=== PATIENT | female | born 1940 | race Caucasian/White ===

== ENCOUNTER 2018-09-18 18:41 | Inpatient (IN) | payer OTHER ==
[2018-09-18] MEDS ORDERED: SKIN ADHESIVE (DERMABOND) 1 EACH TP ONE (20:23)
--- NOTE | 2018-09-18 20:25 | EDPHY ---
H & P Stated Complaint: Fall/lac on head Time Seen by Provider: 09/18/18 19:28 HPI/ROS: Chief complaint: Trip and fall with head injury History of present illness: This is a 77-year-old female who presents to the emergency department for evaluation after sustaining a trip and fall injuring her head. She reports she misstepped falling forward striking the right side of her head. She has sustained a laceration. She has mild headache. In addition the right front aspect of her chest is somewhat sore. There was no loss of consciousness. She denies trauma to or pain in other parts of the body including the neck, back, abdomen or extremities. No other neurologic symptoms such as paresthesias, weakness or paralysis or bowel or bladder dysfunction. Review of systems: A 10 point review of systems was obtained and other than described above was negative - Personal History Current Tetanus/Diphtheria Vaccine: Yes - Medical/Surgical History Hx Asthma: No Hx Chronic Respiratory Disease: No Hx Diabetes: No Hx Cardiac Disease: No Hx Renal Disease: No Hx Cirrhosis: No Hx Alcoholism: No Other PMH: HTN, L sided aneurism with coil - Social History Smoking Status: Former smoker - Physical Exam Exam: General Appearance: Alert, nontoxic, easily conversant with me. Eyes: PERRLA. EOM intact. Respiratory: Lungs clear to auscultation bilaterally. Cardiac: Regular rate and rhythm. Gastrointestinal: Bowel sounds normal. Abdomen soft, nondistended, nontender. Neurological: Alert and oriented x4. Cranial nerves 2-12 grossly intact. Strength and sensation intact and symmetrical. Skin: 1.5 cm laceration to the superolateral aspect of the right orbit. Musculoskeletal: Mild tenderness around the right orbit. The rest of the head is nontender without crepitus or bony deformity. The spine is nontender to palpation along its entire length. No crepitus, bony deformity or step-off is appreciated. Mild tenderness to the right, anterior and inferior chest wall without crepitus or subcutaneous air. The rest of the chest wall is intact palpation. Patient is moving all extremities without difficulty. Constitutional: Initial Vital Signs Temperature (C) 36.5 C 09/18/18 18:56 Heart Rate 74 09/18/18 18:56 Respiratory Rate 18 09/18/18 18:56 Blood Pressure 222/86 H 09/18/18 18:56 O2 Sat (%) 95 02/08/19 18:56 O2 Delivery Mode Room Air Allergies/Adverse Reactions: No Known Allergies Allergy (Unverified 09/18/18 18:59) Home Medications: Medication Instructions Recorded Herbals/Supplements -Info Only 1 ea PO DAILY 09/18/18 Hydrochlorothiazide [HCTZ (*)] 12.5 mg PO DAILY 09/18/18 Levothyroxine [Synthroid 50 mcg 50 mcg PO DAILY06 09/18/18 (*)] Losartan Potassium [Cozaar 50 mg 50 mg PO BID 09/18/18 (*)] amLODIPine BESYLATE [Norvasc 2.5 2.5 mg PO BID 09/18/18 mg (*)] Medical Decision Making - Diagnostics Imaging Results: Imaging Impressions Head CT 09/18/18 19:34 Impression: 1. Subarachnoid and subdural hematoma on the left frontoparietal junction, whereas the trauma is on the right side. 2. Right periorbital subcutaneous cutaneous air, with a fracture of the inferior orbital wall. 3. The inferior orbital muscle goes into the fracture. Does the patient clinically have entrapment? Findings and recommendations discussed with EVELIA Fajardo, at 8:20 p.., on September 18, 2018. Final report concurs with initial preliminary interpretation. Imaging: Discussed imaging studies w/ wafer production worker Radiologist Procedures: Procedure: Laceration repair. Verbal consent was obtained from the patient. The 1.5 cm laceration on the right side of the face was anesthetized in the usual fashion. The wound was irrigated, draped and explored to its base with a gloved finger. There were no deep structures involved. No tendon injury was identified. The wound was repaired with 5 0 Prolene, 1 running stitch. The wound repair was simple. The procedure was performed by myself. ED Course/Re-evaluation: Patient seen in conjunction with my secondary supervising physician Dr. Magdalena Ham. Patient presents to the emergency department after what appears to be a mechanical trip and fall. No preceding events such as dizziness or syncope noted. Imaging studies does reveal an intracranial bleed. She also has an orbital wall fracture and facial laceration. I have consulted with on-call Neurosurgery, Dr. Shah. He has reviewed the patient's CT scan. He would like patient admitted to the Trauma Services and he will follow along. I have consulted with Dr. Jeanette Alaniz who has seen this patient and will admit the patient for further evaluation and care. I have consulted with Dr. Bird Roberts of the hospitalist service for medical management. Dr. Alaniz has consulted with ENT for management of the orbital wall fracture. The plan has been discussed with the patient who voiced understanding and agreement with it. Differential Diagnosis: Included but not limited to soft tissue injury, bony fracture, intracranial injury, intrathoracic injury - Data Points Laboratory Results: Laboratory Results 09/18/18 20:35 09/18/18 20:35 09/18/18 09/18/18 09/18/18 20:35 20:35 20:35 WBC 11.48 10^3/uL H 10^3/uL (3.80-9.50) RBC 5.04 10^6/uL 10^6/uL (4.18-5.33) Hgb 14.6 g/dL g/dL (12.6-16.3) Hct 43.0 % % (38.0-47.0) MCV 85.3 fL fL (81.5-99.8) MCH 29.0 pg pg (27.9-34.1) MCHC 34.0 g/dL g/dL (32.4-36.7) RDW 12.9 % % (11.5-15.2) Plt Count 276 10^3/uL 10^3/uL (150-400) MPV 9.9 fL fL (8.7-11.7) Neut % (Auto) 80.7 % H % (39.3-74.2) Lymph % (Auto) 11.1 % L % (15.0-45.0) [place] % (Auto) 6.1 % % (4.5-13.0) Eos % (Auto) 1.1 % % (0.6-7.6) Baso % (Auto) 0.7 % % (0.3-1.7) Nucleat RBC Rel Count 0.0 % % (0.0-0.2) Absolute Neuts (auto) 9.25 10^3/uL H 10^3/uL (1.70-6.50) Absolute Lymphs (auto) 1.28 10^3/uL 10^3/uL (1.00-3.00) Absolute Monos (auto) 0.70 10^3/uL 10^3/uL (0.30-0.80) Absolute Eos (auto) 0.13 10^3/uL 10^3/uL (0.03-0.40) Absolute Basos (auto) 0.08 10^3/uL 10^3/uL (0.02-0.10) Absolute Nucleated RBC 0.00 10^3/uL 10^3/uL (0-0.01) Immature Gran % 0.3 % % (0.0-1.1) Immature Gran # 0.04 10^3/uL 10^3/uL (0.00-0.10) PT 13.8 SEC SEC (12.0-15.0) INR 1.04 (0.83-1.16) APTT 25.6 SEC SEC (23.0-38.0) Sodium 133 mEq/L L mEq/L (135-145) Potassium 3.6 mEq/L mEq/L (3.5-5.2) Chloride 98 mEq/L mEq/L (97-110) Carbon Dioxide 26 mEq/l mEq/l (22-31) Anion Gap 9 mEq/L mEq/L (6-14) BUN 24 mg/dL H mg/dL (7-23) Creatinine 0.7 mg/dL mg/dL (0.6-1.0) Estimated GFR > 60 Glucose 101 mg/dL H mg/dL (70-100) Calcium 9.9 mg/dL mg/dL (8.5-10.4) Medications Given: Discontinued Medications Hydromorphone HCl (Dilaudid) 0.5 mg IVP EDNOW ONE Stop: 09/18/18 21:01 Last Admin: 09/18/18 21:11 Dose: 0.5 mg Departure - Departure Disposition: [facility] Inpatient Acute Clinical Impression: Intracranial bleed Facial laceration Qualifiers: Encounter type: initial encounter Qualified Code(s): S01.81XA - Laceration without foreign body of other part of head, initial encounter Orbital wall fracture Qualifiers: Encounter type: initial encounter Fracture type: closed Qualified Code(s): S02.80XA - Fracture of other specified skull and facial bones, unspecified side , initial encounter for closed fracture Condition: Fair
[2018-09-18 20:48] LABS: PLATELET COUNT 276 10^3/uL (150-400)
[2018-09-18 20:59] LABS: INR 1.04 (0.83-1.16); PROTIME(PATIENT) 13.8 SEC (12.0-15.0)
[2018-09-18] MEDS ORDERED: HYDROmorphONE/DILAUDID 2 MG/ML INJ IVP ONE (21:00)
[2018-09-18] MEDS ORDERED: HYDROmorphONE/DILAUDID 1 MG/ML INJ ONE (21:09)
[2018-09-18] MEDS ORDERED: NALOXONE HCL 0.4 MG/ML INJ IVP PRN (21:25)
[2018-09-18] MEDS ORDERED: ONDANSETRON 4 MG/2 ML VIAL IVP PRN (21:25)
[2018-09-18] MEDS ORDERED: ONDANSETRON DISINTEGRATING 4 MG TAB PO PRN (21:25)
[2018-09-18] MEDS ORDERED: NS 1,000 ML IV SCH (21:45)
--- NOTE | 2018-09-18 22:14 | GHP ---
[f rep st] HISTORY AND PHYSICAL DATE OF ADMISSION: 09/18/2018 CHIEF COMPLAINT: Fall. HISTORY OF PRESENT ILLNESS: The patient is a 77-year-old woman who was visiting her cousin. She fel l and developed a lac on the lateral side of her orbit. She did not lose consciousness. She complai ns of headache. She has no diplopia. She has no confusion. PAST MEDICAL HISTORY: Hypertension, left-sided aneurysm with coil. SOCIAL HISTORY: Former smoker. ALLERGIES: No known drug allergies. FAMILY HISTORY: Noncontributory. REVIEW OF SYSTEMS: She has a headache. PHYSICAL EXAM: VITAL SIGNS: 36.5, 77, 203/93, 16, 97% room air. GENERAL: Pleasant, elderly woman sitting up on bed. Cousin at bedside. HEENT: Normocephalic. No gross hearing deficits. Mucous me mbranes moist. Pupils equal and round. No scleral icterus. She has a laceration on her right orbit that is sutured. There is faint ecchymosis around this area. No otorrhea. No rhinorrhea. Teeth f it together normally. No midface instability. NECK: No cervical spine tenderness. Full range of m otion. LUNGS: Clear to auscultation bilaterally. No increased work of breathing. CARDIAC: Regula r rate. ABDOMEN: Bowel sounds present, soft, nontender. MUSCULOSKELETAL: 5/5 strength upper and l ower extremities. NEURO: Grossly intact. SKIN: No other abrasions noted. Results reviewed. She had a CT scan performed of her head which showed subarachnoid and subdural hem atoma in the left frontoparietal junction, right periorbital subcutaneous air, and fracture of the in ferior orbital wall. IMPRESSION AND PLAN: The patient is a 77-year-old woman status post fall with fracture of right infe rior orbital wall and left subdural hematoma. She has history of coiling. Neurosurgery has been con sulted. Neuro checks. She is extremely hypertensive now. We will also consult the hospitalist. We will admit her overnight. /[id number]/MODL
[2018-09-18] MEDS: ACETAMINOPHEN 325 MG TAB PO PRN (23:28)
--- NOTE | 2018-09-19 06:40 | GCON ---
[f rep st] CONSULTATION DATE OF CONSULTATION: 09/18/2018 REQUESTING PHYSICIAN: Jeanette Alaniz MD CHIEF COMPLAINT: Elevated blood pressures. HISTORY OF PRESENT ILLNESS: The patient is a pleasant 77-year-old female visiting from [place], [place] , who sustained a fall with subsequent left eye laceration, orbital fracture, and subdural hematoma a nd subarachnoid hemorrhage. In the emergency room, she was noted to have quite elevated blood pressu res initially with a systolic of 222/86. Considering this, the hospital service was consulted for fu rther evaluation and management. Fortunately, with a little bit of time and pain control, her blood pressures did improve with her most recent reading of 122/63. No complaints of any chest pains or di fficulty breathing. PAST MEDICAL HISTORY: Hypertension, history of cerebral aneurysm, status post coiling. PAST SURGICAL HISTORY: Right patellar surgery, aneurysm coiling. CURRENT MEDICATIONS: Amlodipine 2.5 mg twice a day, hydrochlorothiazide 12.5 mg daily, losartan 50 m g twice a day, levothyroxine 50 mcg daily. ALLERGIES: No known drug allergies. FAMILY HISTORY: Father from lung cancer. Mother had a history of CABG and of complication s from hip surgery. SOCIAL HISTORY: The patient is currently . She resides in [place], [place]. She has 2 daughter s. She is a former tobacco smoker. REVIEW OF SYSTEMS: CONSTITUTIONAL: No complaints of any fevers or chills. ENT: No recent upper re spiratory illnesses. CARDIOVASCULAR: No complaints of any syncopal episodes or chest pains. RESPIR ATORY: No complaints of shortness of breath or productive cough. GI: No nausea, vomiting, diarrhea , or constipation. : No reports of any difficulty with urination. NEUROLOGIC: She does note rupal quent falls of recent, but no headaches at the current time after receiving pain medications. HEMATO LOGIC: No history of any deep vein thrombosis or pulmonary embolism. PSYCHIATRIC: No history of an xiety or depression. ENDOCRINE: No history of polyuria, or heat intolerance. SKIN: No new skin ra shes other than bruising around her right eye. MUSCULOSKELETAL: No focal joint pains. PHYSICAL EXAM: VITAL SIGNS: Temperature 36.5, blood pressure most recently 122/63, heart rate 73, r espirations 16, saturating 94% on room air. GENERAL: Patient appears comfortable. She is resting c omfortably in bed. She is awake, alert, conversant, in no acute distress. HEENT: Extraocular movem ents intact. No scleral icterus is noted. She does have bruising around the right eye and sutures i n place. NECK: Supple. No adenopathy appreciated. CHEST: Clear to auscultation with normal respi ratory effort. HEART: Regular rate and rhythm. No murmurs. ABDOMEN: Soft, nontender, nondistende d. : No Bocanegra catheter in place. EXTREMITIES: No significant pitting edema. NEUROLOGIC: Crani al nerves 2-12 appear intact. LABORATORY DATA: White blood cell count 11, hemoglobin 14, platelets 276. Sodium 133, potassium 3.6 , chloride 98, bicarb 26, BUN 24, creatinine 0.7, glucose of 101. INR 1.0, PTT 25. ASSESSMENT AND PLAN: 1. Hypertension. Patient's blood pressure has come down nicely with improved pain control. I recom mend that we continue with her current outpatient regimen without any changes for now. 2. Right eye laceration. This has been sutured. 3. Orbital wall fracture. ENT will be consulted by the ER. 4. Subdural hematoma and subarachnoid hemorrhage. Per trauma service. 5. Hypothyroidism. Continue current dosing of levothyroxine. 6. Deep venous thrombosis prophylaxis. Hold heparin or Lovenox overnight in light of subdural and s ubarachnoid hemorrhages. 7. Disposition. Per Trauma surgery. I appreciate the opportunity to help out in this patient's case. Will follow along during this hospi talization. /[id number]/MODL
[2018-09-19] MEDS: LOSARTAN POTASSIUM 50 MG TAB PO SCH ×2 (07:16→20:24)
[2018-09-19] MEDS: HYDROCHLOROTHIAZIDE 12.5 MG CAP PO SCH (07:17)
[2018-09-19] MEDS: LEVOTHYROXINE 50 MCG TAB PO SCH (07:17)
--- NOTE | 2018-09-19 08:30 | NEUSURGPN ---
Assessment/Plan: 77 yo female s/p fall without a LOC with SDH and tSAH - neuro stable - repeat head CT this am - no Keppra - PT/OT - if head stable then may discharged from neurosurgery standpoint Discussed with Dr. Kirby. Subjective: Having mild pain at the right shiela orbital region. No headache, nausea, vomiting. Objective: Awake. Alert. PERRL. EOMI Facial expression symmetrical Muscle strength full at 5/5 Sensation intact - Physician Discussed Patient with Dr.: Kirby Neurosurgery Physical Exam - Vitals, I&O, Labs I and O 09/18/18 09/19/18 09/20/18 05:59 05:59 05:59 Intake Total 250 Balance 250 Weight 64.866 kg Intake: Oral (ml) 250 Other: Intake Quantity Yes Sufficient Number of Voids Toilet 2 Vital Signs Temp Pulse Resp BP Pulse Ox 36.5 C 72 12 125/61 H 93 09/18/18 18:56 09/19/18 06:00 09/19/18 06:00 09/19/18 07:17 09/19/18 06:00 ICD10 Worksheet Patient Problems: Problems Problem Status Onset Facial laceration Acute Intracranial bleed Acute Orbital wall fracture Acute
[2018-09-19] MEDS: ACETAMINOPHEN 325 MG TAB PO PRN ×3 (09:01→20:24)
--- NOTE | 2018-09-19 09:47 | TRAUMAPNT ---
Trauma Tertiary Progress Note Assessment/Plan: no complaints. mild headache only. no visual changes. multiple falls over the past decade - she trips on the sidewalk frequently. she does have a neurologist in [place]. she notes mild right side chest wall pain with inspiration - this is not any different than last anjali. avss comfortable, up in chair scalp nontender. right periorbital ecchymosis minimal. normal ocular ROM. sutures clean. no other facial tenderness neck nontender heart reg lungs clear mild right lower chest wall tenderness abd nontender normal sensation BUE/BLE motor 5/5 BUE/BLE back nontender for repeat CT head today - assuming unremarkable, ok for dc to her cousin's house today she will return to [place] on friday and can have PCP remove suture toward end of week Objective: Vital Signs Temp Pulse Resp BP Pulse Ox 36.5 C 72 12 125/61 H 93 09/18/18 18:56 09/19/18 06:00 09/19/18 06:00 09/19/18 07:17 09/19/18 06:00 09/18/18 09/19/18 09/20/18 05:59 05:59 05:59 Intake Total 250 Balance 250 PT 13.8 SEC (12.0-15.0) 09/18/18 20:35 INR 1.04 (0.83-1.16) 09/18/18 20:35
--- NOTE | 2018-09-19 11:33 | GCON ---
[f rep st] CONSULTATION DATE OF CONSULTATION: 09/19/2018 HISTORY OF PRESENT ILLNESS: The patient is a 77-year-old female who presented to the emergency department following a fall. She states that she was walking outside and tripped on her own feet, falling forward and hitting the right side of her head. She denies loss of consciousness. She admits to localized pain at the right periorbital region. No nausea or vomiting. No neck or back pain. Denies upper and lower extremity pain, numbness, and tingling. She is visiting her cousin and is from [place]. PAST MEDICAL HISTORY: Hypertension, aneurysm coiling. PAST SURGICAL HISTORY: Knee surgery. ALLERGIES: No known drug allergies. HOME MEDICATIONS: Losartan, Norvasc, Synthroid, hydrochlorothiazide. SOCIAL HISTORY: Patient denies recreational drug use and current alcohol use and tobacco use. She lives in [place] with her . REVIEW OF SYSTEMS: Negative except for what is mentioned in the HPI. FAMILY HISTORY: No pertinent neurosurgical family history. PHYSICAL EXAM: GENERAL: Patient was seen and examined and appears to be in no apparent distress. Mood and affect are appropriate, alert and oriented. VITAL SIGNS: Blood pressure 125/61, heart rate is 72, respiration rate is 12, breathing 93% on room air. HEENT: Extraocular movements are intact. Pupils are equal and reactive. She has a laceration over her right eye with some periorbital edema. Facial expression is symmetrical. Tongue is midline with protrusion. Speech is fluent. Muscle strength is well preserved in her upper and lower extremities at a 5/5, and sensation is intact to light touch. RESULTS: White count 11.48, hemoglobin 14.6, hematocrit 43.0, platelet count 276. PT 13.8, INR 1.04, PTT 25.6. Sodium 133, potassium 3.6, chloride 98, bicarb 26, BUN 24, creatinine 0.7. CT of the head: Subarachnoid and subdural hematoma on the left frontoparietal junction, whereas the trauma is on the right side. Right periorbital subcutaneous cutaneous air with a fracture of the inferior orbital wall. Inferior orbital muscle goes into the fracture. ASSESSMENT AND PLAN: In summary, the patient is a 77-year-old female status post fall without a loss of consciousness. She is neurologically intact and has mild pain at the right periorbital region, where she has sustained a laceration. She had a CT head completed, demonstrating subarachnoid and subdural hematoma at the left frontoparietal junction. She denies taking any blood thinners or antiplatelets at home. She has been stable overnight. We will obtain a new head CT this morning. If head CT is stable and unchanged from her first scan, then she is stable from a neurosurgical standpoint to be discharged home. Prior to being discharged, we recommend evaluation by Physical and Occupational Therapy. Patient seen by myself and Dr. Kirby. /[id number]/MODL MTDD
--- NOTE | 2018-09-19 11:43 | GCON ---
[f rep st] CONSULTATION ENT CONSULTATION NOTE. DATE OF CONSULTATION: 09/19/2018 REQUESTING PHYSICIAN: Dr. Jeanette Alaniz. REASON FOR CONSULTATION: Right orbital floor fracture. HISTORY OF PRESENT ILLNESS: The patient is a 77-year-old woman who was visiting her cousin who lives up in [place], [place]. She herself actually lives outside of [place], [place]. She slipped and fell, striking her right orbital rim, causing a laceration on the right side of the orbit. She did not los e consciousness, but came to the hospital complaining of headache. She denies double vision. PAST MEDICAL HISTORY: Notable for a left-sided intracranial aneurysm treated with a coil. She also has hypertension. She is a former smoker. ALLERGIES: No known drug allergies. REVIEW OF SYSTEMS: The patient said she has a little bit of pain on the right side of her eye today. She denies any double vision. She is oriented to place, person, and time. IMAGING STUDIES: The patient had a CT scan performed of the head, which showed a subarachnoid and hollingsworth bdural hematoma in the left frontoparietal region and right periorbital subcutaneous air with the allison dence of fracture of the infraorbital wall. There was some bowing of the inferior rectus on 1 image into this defect. PHYSICAL EXAM: VITAL SIGNS: The patient's blood pressure is 125/61, heart rate of 72, respirations 12, O2 sat of 93% on room air. GENERAL: She is sitting upright, watching television. HEENT: Ear e xam is normal, with no signs of blood in the ear canal. Eardrums are normal, with no signs of middle ear fluid or hematoma. Eye exam: Pupils equal and reactive to light. Extraocular motions are inta ct, with no signs of entrapment. Nasal exam anteriorly is clear. There is no tenderness to palpatio n of the nasal dorsum. No evidence of nasal trauma or fracture. Oral cavity exam shows upper and lo wer dentures, which are in place. No signs of trauma to the palate or the mandible. No evidence of injury or missing fragments of the denture. Pharyngeal exam is normal. NECK: Exam is normal. No a denopathy, tenderness, or abnormal masses. Palpation of the area around the laceration of the right orbital rim shows no evidence of any step-of f. The laceration is sutured, with no evidence of infection. IMPRESSION: Right inferior orbital rim fracture with some herniation of periorbital fat and the infe rior rectus inferiorly. No sign of entrapment on physical exam. The patient lives in [place] and plan s to return on Friday. Typically in a situation like this, we would observe the patient for the week or so and see if they develops any evidence of delayed entrapment, in which case we would go to the operating room. I recommended that she call on Friday and make an appointment with an ear, no se, and throat surgeon who treats facial trauma down in [place], and she can see them near the end of or, at the latest, a week from this Friday. I have no other recommendations at this point in time. Thank you very much for this consultation. I would be happy to see her back if her condition changes . /[id number]/MODL
--- NOTE | 2018-09-19 12:01 | TRAUMAPN ---
Trauma Progress Note Assessment/Plan: CT head with increased SDH - reviewed with rads and NS - will plan to hold DC today and repeat in am especially given out of town status. patient understands rationale and in agreement. no complaints. mild headache only. no visual changes. multiple falls over the past decade - she trips on the sidewalk frequently. she does have a neurologist in [place]. she notes mild right side chest wall pain with inspiration - this is not any different than last anjali. avss comfortable, up in chair scalp nontender. right periorbital ecchymosis minimal. normal ocular ROM. sutures clean. no other facial tenderness neck nontender heart reg lungs clear mild right lower chest wall tenderness abd nontender normal sensation BUE/BLE motor 5/5 BUE/BLE back nontender for repeat CT head today - assuming unremarkable, ok for dc to her cousin's house today she will return to [place] on friday and can have PCP remove suture toward end of week Objective: Vital Signs Temp Pulse Resp BP Pulse Ox 36.7 C 68 12 129/57 H 96 09/19/18 08:00 09/19/18 10:00 09/19/18 10:00 09/19/18 10:00 09/19/18 10:00 09/18/18 09/19/18 09/20/18 05:59 05:59 05:59 Intake Total 250 Balance 250 PT 13.8 SEC (12.0-15.0) 09/18/18 20:35 INR 1.04 (0.83-1.16) 09/18/18 20:35
--- NOTE | 2018-09-19 13:58 | HOSPPROG ---
Hospitalist Progress Note Assessment/Plan: 77-year-old admitted with mechanical fall, sustaining a orbital fracture, subdural hematoma and subarachnoid hemorrhage. Overall she is improving although continues to complain of pain over her orbital fracture. Reviewed ENT no which recommends monitoring as no sign of entrapment at this time however she does need close and ongoing follow-up post discharge by ENT. # subdural hematoma and subarachnoid hemorrhage, followed by Neurosurgery. Will monitor [address] more [address] given recent CT scan results. # orbital fracture, appreciate ENT consult who recommends close monitoring for the next week to look for entrapment. At this time there is no evidence of entrapment. She will need to establish care back in [place] when she returns home. # hypertension on admission. I suspect this is likely due to pain and anxiety however that has resolved and she has been normotensive # hypothyroidism on replacement Subjective: Patient new to me and chart reviewed. Complains of pain over her right eye laceration and orbital fracture otherwise is doing pretty well. Objective: Vital Signs Temp Pulse Resp BP Pulse Ox 36.7 C 67 16 129/60 H 97 09/19/18 08:00 09/19/18 12:00 09/19/18 12:00 09/19/18 12:00 09/19/18 12:00 09/18/18 09/19/18 09/20/18 05:59 05:59 05:59 Intake Total 250 Balance 250 PT 13.8 SEC (12.0-15.0) 09/18/18 20:35 INR 1.04 (0.83-1.16) 09/18/18 20:35 - Physical Exam Constitutional: no apparent distress Eyes: PERRL Ears, Nose, Mouth, Throat: moist mucous membranes Cardiovascular: regular rate and rhythym Respiratory: no respiratory distress, clear to auscultation Gastrointestinal: soft, non-tender abdomen Genitourinary: no bladder fullness Skin: warm, No other (right ey) Musculoskeletal: full muscle strength Neurologic: AAOx3 Psychiatric: interacting appropriately ICD10 Worksheet Patient Problems: Problems Problem Status Onset Intracranial bleed Acute Facial laceration Acute Orbital wall fracture Acute
--- NOTE | 2018-09-19 14:04 | ASMTCMCOM ---
CM Note CM Note Notes: 09/19/2018 Case Management Note Discussed pt during rounds this morning. Pt is visiting [place] to see her cousin Dianne Roberts [phone]. Pt lives independently in her own home with her Wicho [phone] in [place]. Her daughter lives within a mile of her home. PCP is Dr. Luis Eduardo Juarez in [place]. Pt plans to fly back to [place] on Friday. PT is recommending home. Case Management d/c poc: home with follow up as directed. Case Management available if needs change. Date Signed: 09/19/2018 02:03 PM Electronically Signed By:Anna Leslie RN
--- NOTE | 2018-09-19 15:37 | PDMN ---
Medical Necessity Medical necessity: [facility] M78 Traumatic Brain Injury, Nonsurgical Treatment: 77 yo w/ mechanical fall sustatine orbital fx, subdural hematoma and subarachnoid hemorrhage. Trauma following, initially OBS overnight but repeat CT this am shows increased subdural hematoma. Pt requires additional monitoring overnight w/ repeat CT in am. Change to IP status 09/19/18@1516 per order
[2018-09-20] MEDS: ACETAMINOPHEN 325 MG TAB PO PRN ×2 (04:17→08:11)
[2018-09-20] MEDS: LEVOTHYROXINE 50 MCG TAB PO SCH (04:17)
[2018-09-20] MEDS: HYDROCHLOROTHIAZIDE 12.5 MG CAP PO SCH (08:11)
[2018-09-20] MEDS: LOSARTAN POTASSIUM 50 MG TAB PO SCH ×2 (08:11→20:22)
--- NOTE | 2018-09-20 08:34 | NEUSURGPN ---
Assessment/Plan: 77 yo female s/p fall without a LOC with SDH and tSAH - neuro stable - repeat head CT this am stable - no Keppra - PT/OT - ok to be discharged from neurosurgery standpoint and ok to fly back to [place] on Friday Discussed with Dr. Kirby. Subjective: No headache, nausea, vomiting. Objective: Awake. Alert. PERRL Muscle strength full at 5/5 Sensation intact Right periorbital edema/ecchymosis - Physician Discussed Patient with Dr.: Kirby Neurosurgery Physical Exam - Vitals, I&O, Labs I and O 09/19/18 09/20/18 09/21/18 05:59 05:59 05:59 Intake Total 2650 Balance 2650 Intake: Oral (ml) 2650 Other: Intake Quantity Yes Sufficient Number of Voids Toilet 1 Vital Signs Temp Pulse Resp BP Pulse Ox 36.6 C 74 16 124/57 H 95 09/20/18 08:05 09/20/18 08:05 09/20/18 08:05 09/20/18 08:11 09/20/18 08:05 ICD10 Worksheet Patient Problems: Problems Problem Status Onset Facial laceration Acute Intracranial bleed Acute Orbital wall fracture Acute
--- NOTE | 2018-09-20 09:32 | PDDCSUM ---
Discharge Summary Discharge Summary: DC summary
[2018-09-20] MEDS ORDERED: levETIRAcetam 1000MG/NACL 100 ML IV ONE (10:05)
[2018-09-20] MEDS ORDERED: METOPROLOL TARTRATE 5 MG/5 ML INJ IVP PRN (10:09)
--- NOTE | 2018-09-20 10:16 | TRAUMAPN ---
Trauma Progress Note Assessment/Plan: patient was doing well with plans for discharge today. repeat head CT unchanged from yesterday. upon attempting a BM, patient called for help in the bathroom and was found seizing (tonic/clonic activity witnessed with later BM). she was helped back to bed and became postictal without added meds. keppra ordered. labs/ekg requested. will hold discharge. care plan reviewed with NS. Objective: Vital Signs Temp Pulse Resp BP Pulse Ox 36.6 C 74 16 124/57 H 95 09/20/18 08:05 09/20/18 08:05 09/20/18 08:05 09/20/18 08:11 09/20/18 08:05 09/19/18 09/20/18 09/21/18 05:59 05:59 05:59 Intake Total 2650 Balance 2650 PT 13.8 SEC (12.0-15.0) 09/18/18 20:35 INR 1.04 (0.83-1.16) 09/18/18 20:35
[2018-09-20] MEDS ORDERED: levETIRAcetam 500MG/NACL 100 ML IV SCH (10:30)
--- NOTE | 2018-09-20 10:52 | HOSPPROG ---
Hospitalist Progress Note Assessment/Plan: 77-year-old admitted with mechanical fall, sustaining a orbital fracture, subdural hematoma and subarachnoid hemorrhage. Overall she is improving although continues to complain of pain over her orbital fracture. Reviewed ENT no which recommends monitoring as no sign of entrapment at this time however she does need close and ongoing follow-up post discharge by ENT. This morning she had a grand mal seizure while in the bathroom # subdural hematoma and subarachnoid hemorrhage, followed by Neurosurgery. CT scan results today are stable # grand mal seizure. Patient and bathroom and noted her right hand was shaking uncontrollably before her seizure. She was able to call out and get help so she was not injured. EKG post seizure did show some significant ST depressions on the limb leads. Cardiology has been consulted. * Follow-up on troponins * Echocardiogram * Stress test depending on echocardiogram results either inpatient or outpatient or angiogram # orbital fracture, appreciate ENT consult who recommends close monitoring for the next week to look for entrapment. At this time there is no evidence of entrapment. She will need to establish care back in [place] when she returns home. # hypertension on admission. I suspect this is likely due to pain and anxiety however that has resolved and she has been normotensive # hypothyroidism on replacement Subjective: Patient had a grand mal seizure this morning. Discussed in multidisciplinary rounds also discussed with trauma. Denies any chest pain or shortness of breath does recall her right arm shaking just prior to her seizure. She has never had seizures before. Objective: Vital Signs Temp Pulse Resp BP Pulse Ox 36.6 C 91 19 131/70 H 94 09/20/18 08:05 09/20/18 10:34 09/20/18 10:34 09/20/18 10:34 09/20/18 10:34 Laboratory Results 09/20/18 10:15 09/19/18 09/20/18 09/21/18 05:59 05:59 05:59 Intake Total 2650 Balance 2650 PT 13.8 SEC (12.0-15.0) 09/18/18 20:35 INR 1.04 (0.83-1.16) 09/18/18 20:35 ICD10 Worksheet Patient Problems: Problems Problem Status Onset Intracranial bleed Acute Facial laceration Acute Orbital wall fracture Acute
--- NOTE | 2018-09-20 11:42 | PDCARCONS ---
Cardiology Consult Reason for Consult: Abnormal EKG post seizure Chief Complaint: Seizure Requesting Physician: Dr. Yesi Cespedes History of Present Illness: 77-year-old female visiting here from [place]. On Friday evening, while walking into [place] [employer], she tripped and fell, had intracranial bleed. Has been admitted to a trauma service. This morning she had a seizure. EKG was done post seizure that showed inferolateral ST depressions. Therefore we were asked to see the patient. At time of my visit with the patient she is fully awake and alert, denies any chest discomfort. She has not had exertional chest discomfort in the past. No history of syncope, she sure that her episode on Friday evening was a mechanical fall. History Information - Allergies/Home Medication List Allergies/Adverse Reactions: No Known Allergies Allergy (Unverified 09/18/18 18:59) Home Medications: Herbals/Supplements -Info Only 1 ea PO DAILY 09/18/18 [Last Taken Unknown] Hydrochlorothiazide [HCTZ (*)] 12.5 mg PO DAILY 09/18/18 [Last Taken 09/18/18 08 :00] Levothyroxine [Synthroid 50 mcg (*)] 50 mcg PO DAILY06 09/18/18 [Last Taken 03/29 08:00] Losartan Potassium [Cozaar 50 mg (*)] 50 mg PO BID 09/18/18 [Last Taken 08:00] amLODIPine BESYLATE [Norvasc 2.5 mg (*)] 2.5 mg PO BID 09/18/18 [Last Taken 03/29 08:00] Past Medical History: - Social History Smoking Status: Former smoker Physical Exam Physical Exam: Temp Pulse Resp BP Pulse Ox 36.6 C 91 19 131/70 H 94 09/20/18 08:05 09/20/18 10:34 09/20/18 10:34 09/20/18 10:34 09/20/18 10:34 Constitutional: no apparent distress, appears nourished Eyes: PERRL, EOMI Ears, Nose, Mouth, Throat: moist mucous membranes, hearing normal Cardiovascular: regular rate and rhythym, no murmur, rub, or gallop Respiratory: no respiratory distress Gastrointestinal: normoactive bowel sounds, soft, non-tender abdomen Skin: warm Neurologic: AAOx3 Psychiatric: interacting appropriately, not anxious, not encephalopathic, thought process linear Lab and Imaging 09/18/18 20:35 09/20/18 10:15 WBC 11.48 10^3/uL (3.80-9.50) H 09/18/18 20:35 RBC 5.04 10^6/uL (4.18-5.33) 09/18/18 20:35 Hgb 14.6 g/dL (12.6-16.3) 09/18/18 20:35 Hct 43.0 % (38.0-47.0) 09/18/18 20:35 MCV 85.3 fL (81.5-99.8) 09/18/18 20:35 MCH 29.0 pg (27.9-34.1) 09/18/18 20:35 MCHC 34.0 g/dL (32.4-36.7) 09/18/18 20:35 RDW 12.9 % (11.5-15.2) 09/18/18 20:35 Plt Count 276 10^3/uL (150-400) 09/18/18 20:35 MPV 9.9 fL (8.7-11.7) 09/18/18 20:35 Neut % (Auto) 80.7 % (39.3-74.2) H 09/18/18 20:35 Lymph % (Auto) 11.1 % (15.0-45.0) L 09/18/18 20:35 [place] % (Auto) 6.1 % (4.5-13.0) 09/18/18 20:35 Eos % (Auto) 1.1 % (0.6-7.6) 09/18/18 20:35 Baso % (Auto) 0.7 % (0.3-1.7) 09/18/18 20:35 Nucleat RBC Rel Count 0.0 % (0.0-0.2) 09/18/18 20:35 Absolute Neuts (auto) 9.25 10^3/uL (1.70-6.50) H 09/18/18 20:35 Absolute Lymphs (auto) 1.28 10^3/uL (1.00-3.00) 09/18/18 20:35 Absolute Monos (auto) 0.70 10^3/uL (0.30-0.80) 09/18/18 20:35 Absolute Eos (auto) 0.13 10^3/uL (0.03-0.40) 09/18/18 20:35 Absolute Basos (auto) 0.08 10^3/uL (0.02-0.10) 09/18/18 20:35 Absolute Nucleated RBC 0.00 10^3/uL (0-0.01) 09/18/18 20:35 Immature Gran % 0.3 % (0.0-1.1) 09/18/18 20:35 Immature Gran # 0.04 10^3/uL (0.00-0.10) 09/18/18 20:35 PT 13.8 SEC (12.0-15.0) 09/18/18 20:35 INR 1.04 (0.83-1.16) 09/18/18 20:35 APTT 25.6 SEC (23.0-38.0) 09/18/18 20:35 Sodium 135 mEq/L (135-145) 09/20/18 10:15 Potassium 3.6 mEq/L (3.5-5.2) 09/20/18 10:15 Chloride 100 mEq/L (97-110) 09/20/18 10:15 Carbon Dioxide 15 mEq/l (22-31) L 09/20/18 10:15 Anion Gap 20 mEq/L (6-14) H 09/20/18 10:15 BUN 15 mg/dL (7-23) 09/20/18 10:15 Creatinine 0.8 mg/dL (0.6-1.0) 09/20/18 10:15 Estimated GFR > 60 09/20/18 10:15 Glucose 107 mg/dL (70-100) H 09/20/18 10:15 Calcium 9.9 mg/dL (8.5-10.4) 09/18/18 20:35 Troponin I < 0.012 ng/mL (0.000-0.034) 09/20/18 10:15 EKG Interpretation: Positive for: normal sinsus rhythm, ST depression ( Inferolateral leads) Telemetry: Sinus rhythm A/P Assessment: 1. Mechanical fall 2. Intracranial bleed 3. Seizure 4. Abnormal EKG Plan: No baseline EKG is available for comparison. She has inferolateral ST depression on EKG post seizure, clinical relevance of this is unclear in a patient who is hemodynamically stable and does not have any chest discomfort. 1st troponin post seizure was negative. We will perform echocardiogram to assess LV function. Will check serial troponins. Would recommend stress testing as an outpatient to further assess EKG abnormalities. Would try to obtain old EKGs from [facility] for comparison.
[2018-09-20] MEDS ORDERED: MAGNESIUM HYDROXIDE 30 ML UDCUP PO PRN (12:26)
[2018-09-20] MEDS ORDERED: POLYETHYLENE GLYCOL 3350 17 GM PKT PO PRN (12:26)
[2018-09-20] MEDS ORDERED: LACTULOSE 20 GM/30 ML UDCUP PO PRN (12:26)
[2018-09-20] MEDS ORDERED: BISACODYL 10 MG SUPP PR PRN (12:26)
[2018-09-20] MEDS: SENNOSIDES/DOCUSATE SODIUM TAB PO SCH ×2 (14:32→20:20)
[2018-09-20] MEDS: NITROGLYCERIN 0.4 MG BTL SL PRN ×2 (15:03→15:09)
--- NOTE | 2018-09-20 15:24 | ECHO ---
[email or web address] [address] [address] Main: [phone] Fax: Transthoracic Echocardiogram Name: CHADD BARBOZA MR#: [id number] Study Date: 09/20/2018 Study Time: 01:55 PM Date of : 1940 Age: 77 year(s) Height: 170.2 cm (67 in.) Weight: 68.95 kg (152 lb.) BSA: 1.8 m2 Gender: Female Examination: Echo Indication: Seizure Image Quality: Good Contrast: Requested by: Jeanette Alaniz BP: 138 mmHg/74 mmHg Heart Rate: Rhythm: Indication: Seizure Procedure Staff Rework Operator: Sayda Nolasco LEAH Reading Physician: Shima Jaquez MD Requesting Provider: Conclusions: Normal size left ventricle. No LV hypertrophy. Mildly reduced systolic LV function. The ejection fraction is estimated to be 45-50 %. Mid to distal anterior wall and anteroseptum; mid to distal inferior wall and apex are hypokinetic. . Normal size right ventricle. Normal RV function. Mild tricuspid regurgitation is present. The pulmonary artery pressure is normal. No pericardial effusion. There is no previous echocardiogram for comparison. Measurements: Chambers Valvular Assessment AV/MV Valvular Assessment TV/PV Normal Normal Normal Name Value Range Name Value Range Name Value Range Ao Marlena (MM): 3.1 cm (2.2 cm-3.7 AV Vmax: 1.19 m/s (1 m/s-1.7 TR Vmax: 2.66 mm/s ( - ) cm) m/s) TR PGmax: 28 mmHg ( - ) IVSd (2D): 0.9 cm (0.6 cm-1.1 AV meanP mmHg ( - ) syst. PAP: 33 mmHg ( - ) cm) MV E Vmax: 0.58 m/s ( - ) LVDd (2D): 4.8 cm (3.9 cm-5.3 MV A Vmax: 0.78 m/s ( - ) cm) MV E/A: 0.74 ( - ) LVPWd (2D): 0.9 cm ( - ) EF Range: 45-50 % Continued Measurements: Chambers Valvular Assessment AV/MV Valvular Assessment TV/PV Name Value Name Value Name Value Patient: CHADD BARBOZA Study Date: 09/20/2018 Page 1 of 2 01:55 PM LADs: 3.4 cm MV E' Septal: 0.05 m/s CVP (est.): 5 mmHg LADs Lon.0 cm MV E/E' Septal: 11.10 LA Area: 18.4 cm2 MV E/E' Lateral: 10.10 LA Volume: 54 ml LA Volume Index: 30.0 ml/m2 Findings: Left Ventricle: Normal size left ventricle. No LV hypertrophy. Mildly reduced systolic LV function. The ejection fraction is estimated to be 45-50 %. Mid to distal anterior wall and anteroseptum; mid to distal inferior wall and apex are hypokinetic. . Right Ventricle: Normal size right ventricle. Normal RV function. Left Atrium: The left atrium is normal in size. Right Atrium: The right atrium is normal in size. Mitral Valve: Mild mitral annular calcification. Trivial mitral valve regurgitation. Aortic Valve: Minimal aortic cusp calcification is noted. The aortic valve is tri-leaflet. Trivial aortic valve regurgitation. Tricuspid Valve: The tricuspid valve is normal in appearance and function. Mild tricuspid regurgitation is present. The pulmonary artery pressure is normal. Pulmonic Valve: Pulmonary valve not well visualized. Aorta: The aorta is normal. Pericardium: No pericardial effusion. (No Signature Object) Patient: CHADD BARBOZA Study Date: 09/20/2018 Page 2 of 2 01:55 PM [id number]
--- NOTE | 2018-09-20 16:24 | PDCARPN ---
Cardiology Progress Note Assessment/Plan: Assessment/plan: Called by LEATHER STITCHER that patient was having 3/10 chest pressure. This resolved with morphine and NTG but SBP 60, improved to 80s with IVF. Repeat ECG reviewed: normalization of lateral STD from earlier. Old anterior OH/anterior Q waves seen on both ECGs. Echo reviewed: LVEF 45%. Anteroseptal/ anterior (mid to apex), inferior mid to apex and apex are hypokinetic. This could be LAD disease or stress CMP. Trop now 2.2 Discussed with IC, Dr. Mandujano and Neurosurg, Dr. Kirby. Given recent SAH/SDH favor conservative mx. Ok to start ASA 81 mg daily. No plavix or heparin. Will only cath if STEMI or ongoing CP. Repeat troponin and ECG at 1800 Start low dose coreg and d/c HCTZ. 09/20/18 16:25 Objective: Vital Signs (8 Hrs) Temp Pulse Resp BP Pulse Ox 09/20/18 16:00 36.9 C 77 18 114/94 H 100 09/20/18 15:42 80 17 117/56 L 99 09/20/18 15:26 73 14 96/44 L 97 09/20/18 15:23 70 11 L 83/39 L 95 09/20/18 15:18 68 59/34 L 09/20/18 15:10 80 12 72/34 L 92 09/20/18 15:07 86 16 121/58 H 95 09/20/18 14:50 81 13 124/59 H 92 09/20/18 14:00 120/53 L 09/20/18 11:51 36.3 C 92 18 138/74 H 94 09/20/18 10:34 91 19 131/70 H 94 09/20/18 10:15 109 H 190/74 H 09/20/18 10:00 134 H 222/117 H Intake/Output (24 Hrs) 09/19/18 09/20/18 09/21/18 05:59 05:59 05:59 Intake Total 2650 100 Output Total 300 Balance 2650 -200 Intake: Oral (ml) 2650 IV Infused (ml) 100 levETIRAcetam 1000MG/NACL 100 100 ml @ 400 mls/hr IV ONCE ONE Rx#:[id number] Output: Urine (ml) 300 Bedside Commode 300 Other: Intake Quantity Yes Sufficient Number of Voids Bedside Commode 1 Toilet 1 Result Diagrams: 09/18/18 20:35 09/20/18 10:15 Cardiac Labs: Cardiac Lab Results (72 Hrs) 09/20/18 09/20/18 14:20 10:15 Troponin I 2.190 H < 0.012 ICD10 Worksheet Patient Problems: Problems Problem Status Onset Intracranial bleed Acute Facial laceration Acute Orbital wall fracture Acute
[2018-09-20] MEDS: ASPIRIN 81 MG CHEWABLE TAB PO SCH (16:34)
[2018-09-20] MEDS ORDERED: NS BOLUS 1000 ML (Wide open) IV ONE (17:00)
[2018-09-20] MEDS: CARVEDILOL 3.125 MG TAB PO SCH (18:06)
[2018-09-20] MEDS: levETIRAcetam 500 MG TAB PO SCH (20:20)
[2018-09-21] MEDS: LEVOTHYROXINE 50 MCG TAB PO SCH (05:16)
--- NOTE | 2018-09-21 06:57 | NEUSURGPN ---
Assessment/Plan: Assessment: 77 yo female s/p fall without a LOC with SDH and tSAH Plan: -neuro stable this am-pt did have a seizure and will need a follow up with NS/ neurology when she is back home in [place] -repeat head CT yesterday am stable -on Keppra-continue with Keppra until seen by NS/Neurology in [place] in 2 weeks -PT/OT/ST on board -ok to be discharged from neurosurgery standpoint and ok to fly back to [place] on Friday -pt has other medical issues-IM following elevated Trop -call with any questions or concerns -pt understands and agrees -discussed with Dr. Kirby Subjective: Awake and alert. NAD. Eating/drinking and voiding. No f/c/n/v/d. No other complaints or concerns. Objective: AAO x 3, PERRLA/EOMI no droop CN 2-12 grossly intact +lt touch 5/5 BUE/BLE = Neuro Check Frequency: per routine Urinary Catheter in Place: No - Physician Discussed Patient with Dr.: Kirby Patient Seen by Dr.: Kirby Neurosurgery Physical Exam - Vitals, I&O, Labs I and O 09/20/18 09/21/18 09/22/18 05:59 05:59 05:59 Intake Total 2650 2550 Output Total 1000 Balance 2650 1550 Intake: Oral (ml) 2650 1550 IV Infused (ml) 1000 Ns 1,000 ml @ Wide Open 900 IV ONCE ONE Rx#: [id number] levETIRAcetam 1000MG/NACL 100 100 ml @ 400 mls/hr IV ONCE ONE Rx#:[id number] Output: Urine (ml) 1000 Bedside Commode 1000 Other: Intake Quantity Yes Yes Sufficient Number of Voids Bedside Commode 1 Toilet 1 Vital Signs Temp Pulse Resp BP Pulse Ox 36.6 C 70 14 109/45 L 98 09/21/18 00:00 09/21/18 04:00 09/21/18 04:00 09/21/18 04:00 09/21/18 04:00 Laboratory Results 09/20/18 10:15 ICD10 Worksheet Patient Problems: Problems Problem Status Onset Facial laceration Acute Intracranial bleed Acute Orbital wall fracture Acute
[2018-09-21] MEDS: CARVEDILOL 3.125 MG TAB PO SCH (08:09)
[2018-09-21] MEDS: levETIRAcetam 500 MG TAB PO SCH ×2 (08:09→20:03)
[2018-09-21] MEDS: SENNOSIDES/DOCUSATE SODIUM TAB PO SCH ×2 (08:09→20:06)
[2018-09-21] MEDS: ASPIRIN 81 MG CHEWABLE TAB PO SCH (08:10)
[2018-09-21] MEDS: LOSARTAN POTASSIUM 50 MG TAB PO SCH ×2 (08:12→20:04)
--- NOTE | 2018-09-21 08:59 | CPEKG ---
Test Reason : OPEN Blood Pressure : / mmHG Vent. Rate : 073 BPM Atrial Rate : 073 BPM P-R Int : 189 ms QRS Dur : 092 ms QT Int : 403 ms P-R-T Axes : 066 025 078 degrees QTc Int : 444 ms Sinus rhythm Anterior infarct, recent Confirmed by Geo Abbott ([id number]) on 09/21/2018 8:59:41 AM Referred By: Jeanette Alaniz Confirmed By:Geo Abbott
--- NOTE | 2018-09-21 09:01 | CPEKG ---
Test Reason : OPEN Blood Pressure : / mmHG Vent. Rate : 086 BPM Atrial Rate : 087 BPM P-R Int : 175 ms QRS Dur : 091 ms QT Int : 362 ms P-R-T Axes : 064 019 054 degrees QTc Int : 433 ms Sinus rhythm Probable anteroseptal infarct, recent Confirmed by Geo Abbott ([id number]) on 09/21/2018 9:00:58 AM Referred By: Jeanette Alaniz Confirmed By:Geo Abbott
--- NOTE | 2018-09-21 09:05 | CPEKG ---
Test Reason : OPEN Blood Pressure : / mmHG Vent. Rate : 079 BPM Atrial Rate : 078 BPM P-R Int : 177 ms QRS Dur : 093 ms QT Int : 379 ms P-R-T Axes : 065 025 056 degrees QTc Int : 435 ms Sinus rhythm Probable left atrial enlargement Probable anteroseptal infarct, recent Confirmed by Geo Abbott ([id number]) on 09/21/2018 9:04:59 AM Referred By: Jeaentte Alaniz Confirmed By:Geo Abbott
[2018-09-21] MEDS ORDERED: CARVEDILOL 3.125 MG TAB PO SCH (09:26)
[2018-09-21] MEDS ORDERED: CARVEDILOL 6.25 MG TAB PO SCH (09:45)
[2018-09-21] MEDS ORDERED: CARVEDILOL 3.125 MG TAB PO ONE (09:45)
--- NOTE | 2018-09-21 10:38 | SOAPPROG ---
SOAP Progress Note Assessment/Plan: Assessment: 1. Mechanical fall. This has resulted in a left orbital fracture, subdural hematoma and evidence of a subarachnoid hemorrhage. 2. Non ST elevation myocardial infarction. She had symptoms of chest discomfort , ECG changes and elevated cardiac enzymes. This could be a reflection of underlying coronary disease or possibly a result of stress cardiomyopathy. 3. Labile hypertension. She presented with systolics well in excess of 200 mmHg. Yesterday she had blood pressures noted to be down into the 60s systolic. Today, blood pressures are reasonably well controlled inconsistent in the low 100s. It should be noted that her amlodipine has not been administered. 4. Seizure. Apparently, she suffered a seizure yesterday. She has not had a recurrent event since then. Plan: 1. I did speak to nervous surgery. At this point in time, it is not thought that she would be safe for systemic anticoagulation or advancement of anti- platelet therapy. Therefore, I think conservative management of this cardiac event is warranted. It is thought that she might be a candidate for dual anti- platelet therapy and anticoagulation this coming Friday. At that point, we can consider proceeding with further cardiovascular workup in the form of cardiac catheterization. 2. I have discontinued the amlodipine. I have also reduced her Cozaar down 25 mg twice daily. 3. I have increased her Coreg up to 6.25 mg twice daily. 4. I ordered an ECG for the morning. 5. Hopefully, she can be kept stable for the next 48 hr pending a more suitable time to proceed with an invasive cardiac workup. 6. I will start her on statin therapy and check lipids. 7. We will follow along with you. 09/21/18 10:38 Subjective: The patient was seen and examined. Her chart was reviewed. I reviewed her electrocardiograms. Today she states that she is feeling fine. She has no chest discomfort, chest pain, pressure GERD symptoms of dyspnea. Yesterday afternoon she did have precordial chest heaviness and was seen by Dr. Shima Jaquez. She has not had these symptoms since. Overnight her troponins were trended. Her troponins did peak just above 2. Additionally, she had evolutionary electrocardiographic changes with loss of anterior R-waves and progressive T-wave inversions. Her echocardiogram demonstrates wall motion abnormalities that disproportionately a fact the interventricular septum and left ventricular apex. Objective: Vital Signs Temp Pulse Resp BP Pulse Ox 36.7 C 71 13 103/55 L 98 09/21/18 07:19 09/21/18 07:19 09/21/18 07:19 09/21/18 07:19 09/21/18 07:19 Laboratory Results 09/20/18 10:15 09/20/18 09/21/18 09/22/18 05:59 05:59 05:59 Intake Total 2650 2550 Output Total 1000 Balance 2650 1550 PT 13.8 SEC (12.0-15.0) 09/18/18 20:35 INR 1.04 (0.83-1.16) 09/18/18 20:35 Laboratory Tests 09/20/18 09/20/18 09/20/18 10:15 14:20 18:00 Troponin I < 0.012 2.190 H 2.240 H 09/21/18 09/21/18 00:15 05:46 Troponin I 1.780 H 1.230 H Physical Exam - Physical Exam General Appearance: WD/WN, alert, no apparent distress Respiratory: chest non-tender, lungs clear, normal breath sounds Cardiac/Chest: normal peripheral pulses, regular rate, rhythm Peripheral Pulses: 2+: carotid (R), carotid (L), femoral (R), femoral (L), dorsalis-pedis (R), dorsalis-pedis (L) Abdomen: normal bowel sounds, non-tender, soft Pelvic Exam: deferred Rectal: deferred Back: Normal inspection Skin: normal color, warm/dry Lymphatic: no adenopathy Extremities: normal range of motion, non-tender, normal inspection, normal capillary refill Neuro/Psych: no motor/sensory deficits, alert, normal mood/affect, oriented x 3 ICD10 Worksheet Patient Problems: Problems Problem Status Onset Facial laceration Acute Intracranial bleed Acute Orbital wall fracture Acute
--- NOTE | 2018-09-21 11:29 | HOSPPROG ---
Hospitalist Progress Note Assessment/Plan: 77-year-old admitted with mechanical fall, sustaining a orbital fracture, subdural hematoma and subarachnoid hemorrhage. Overall she is improving although continues to complain of pain over her orbital fracture. Reviewed ENT no which recommends monitoring as no sign of entrapment at this time however she does need close and ongoing follow-up post discharge by ENT. Patient had grand mal seizure yesterday in the bathroom. This was associated with EKG changes in ST depression as well as elevated troponins. Her EKG then improved however she did have an episode of chest pain last night that responded to nitroglycerin. # subdural hematoma and subarachnoid hemorrhage, followed by Neurosurgery. CT scan results today are stable # grand mal seizure. Patient and bathroom and noted her right hand was shaking uncontrollably before her seizure. She was able to call out and get help so she was not injured. EKG post seizure did show some significant ST depressions on the limb leads. * Currently on Keppra for seizure prophylaxis no further seizures noted * Repeat metabolic panel given mild acidosis post seizure # EKG changes associated with abnormal wall motion abnormalities on echocardiogram and elevated troponins. She had an episode of chest pain last night that responded to nitroglycerin and morphine. Discussed with Cardiology who feel this could represent coronary artery disease versus stress myopathy. * Continue close monitoring and telemetry, troponins are trending down * Plan for possible left heart catheterization when patient is stable for dual platelet therapy from a neurosurgical standpoint # orbital fracture, appreciate ENT consult who recommends close monitoring for the next week to look for entrapment. At this time there is no evidence of entrapment. She will need to establish care back in [place] when she returns home. # hypertension on admission. I suspect this is likely due to pain and anxiety however that has resolved and she has been normotensive # hypothyroidism on replacement Subjective: Patient discussed in multidisciplinary rounds. She is quite comfortable and has no further chest pain this morning. Objective: Vital Signs Temp Pulse Resp BP Pulse Ox 36.8 C 67 19 103/47 L 92 09/21/18 11:04 09/21/18 11:04 09/21/18 11:04 09/21/18 11:04 09/21/18 11:04 Laboratory Results 09/20/18 10:15 09/20/18 09/21/18 09/22/18 05:59 05:59 05:59 Intake Total 2650 2550 Output Total 1000 Balance 2650 1550 PT 13.8 SEC (12.0-15.0) 09/18/18 20:35 INR 1.04 (0.83-1.16) 09/18/18 20:35 - Physical Exam Constitutional: not in pain Eyes: PERRL Ears, Nose, Mouth, Throat: moist mucous membranes, other (Ecchymosis right eye/ orbit) Cardiovascular: regular rate and rhythym, no murmur, rub, or gallop Respiratory: no respiratory distress, clear to auscultation Gastrointestinal: normoactive bowel sounds, soft, non-tender abdomen Genitourinary: no bladder fullness Skin: warm, normal color Neurologic: AAOx3 Psychiatric: interacting appropriately ICD10 Worksheet Patient Problems: Problems Problem Status Onset Facial laceration Acute Intracranial bleed Acute Orbital wall fracture Acute
--- NOTE | 2018-09-21 11:34 | ASMTCMCOM ---
CM Note CM Note Notes: Pt's care discussed in rounds, pt is scheduled for cardiac cath on Friday. Pt had seizure yesterday. Pt will likely be discharged independently, CM available if needs arise. Plan: Independent Date Signed: 09/21/2018 11:34 AM Electronically Signed By:LETY Triana
--- NOTE | 2018-09-21 12:44 | SOAPPROG ---
SOAP Progress Note Assessment/Plan: Assessment: Plan: Subjective: feels fine pe: perrl, eomi lungs clear heart nml s1s2 no m abd soft bening no further sz troponin went up to 2.4 yesterday assess: sx issue- no won keppra troponin leak- felt to be no ischemic, but scheduled for cath in 2 days. cont to monitor in icu. Objective: Vital Signs Temp Pulse Resp BP Pulse Ox 36.8 C 67 19 103/47 L 92 09/21/18 11:04 09/21/18 11:04 09/21/18 11:04 09/21/18 11:04 09/21/18 11:04 Laboratory Results 09/20/18 10:15 09/20/18 09/21/18 09/22/18 05:59 05:59 05:59 Intake Total 2650 2550 Output Total 1000 Balance 2650 1550 PT 13.8 SEC (12.0-15.0) 09/18/18 20:35 INR 1.04 (0.83-1.16) 09/18/18 20:35 ICD10 Worksheet Patient Problems: Problems Problem Status Onset Facial laceration Acute Intracranial bleed Acute Orbital wall fracture Acute
[2018-09-21] MEDS: CARVEDILOL 6.25 MG TAB PO SCH (17:14)
[2018-09-21] MEDS: ACETAMINOPHEN 325 MG TAB PO PRN (20:03)
[2018-09-21] MEDS: ATORVASTATIN CALCIUM 40 MG TAB PO SCH ×2 (20:29→20:31)
[2018-09-22] MEDS: LEVOTHYROXINE 50 MCG TAB PO SCH (05:40)
[2018-09-22] MEDS: ACETAMINOPHEN 325 MG TAB PO PRN ×3 (06:03→20:06)
[2018-09-22] MEDS: levETIRAcetam 500 MG TAB PO SCH ×2 (07:52→20:06)
[2018-09-22] MEDS: LOSARTAN POTASSIUM 50 MG TAB PO SCH ×2 (07:52→20:06)
[2018-09-22] MEDS: CARVEDILOL 6.25 MG TAB PO SCH ×2 (07:52→17:39)
[2018-09-22] MEDS: ASPIRIN 81 MG CHEWABLE TAB PO SCH (07:53)
[2018-09-22] MEDS: ATORVASTATIN CALCIUM 40 MG TAB PO SCH (07:53)
[2018-09-22] MEDS: SENNOSIDES/DOCUSATE SODIUM TAB PO SCH ×2 (08:37→20:06)
--- NOTE | 2018-09-22 09:01 | SOAPPROG ---
SOAP Progress Note Assessment/Plan: Assessment: 1. Mechanical fall. This has resulted in a left orbital fracture, subdural hematoma and evidence of a subarachnoid hemorrhage. 2. Non ST elevation myocardial infarction. She had symptoms of chest discomfort , ECG changes and elevated cardiac enzymes. This could be a reflection of underlying coronary disease or possibly a result of stress cardiomyopathy. 3. Labile hypertension. She presented with systolics well in excess of 200 mmHg. Yesterday she had blood pressures noted to be down into the 60s systolic. Today, blood pressures are reasonably well controlled inconsistent in the low 100s. It should be noted that her amlodipine has not been administered. 4. Seizure. Apparently, she suffered a seizure yesterday. She has not had a recurrent event since then. 09/22/2018: She is stable. No further chest discomfort. She is tolerating her current medications. Plan: 1. I would like to perform a coronary angiogram tomorrow as long as there are no concerns with respect to her history of head trauma and intracranial bleeding. 2. She will continue her current medications as prescribed. 09/22/18 09:00 Subjective: She is doing well today. She has no complaints of chest pain or significant dyspnea. She does have an ongoing right frontal headache which is largely unchanged. Objective: Vital Signs Temp Pulse Resp BP Pulse Ox 36.4 C 60 13 131/77 H 95 09/22/18 07:32 09/22/18 07:52 09/22/18 07:32 09/22/18 07:52 09/22/18 07:32 Laboratory Results 09/22/18 05:35 09/21/18 09/22/18 09/23/18 05:59 05:59 05:59 Intake Total 2550 1350 Output Total 1000 Balance 1550 1350 PT 13.8 SEC (12.0-15.0) 09/18/18 20:35 INR 1.04 (0.83-1.16) 09/18/18 20:35 Physical Exam - Physical Exam General Appearance: WD/WN, alert, no apparent distress Respiratory: chest non-tender, lungs clear, normal breath sounds Cardiac/Chest: normal peripheral pulses, regular rate, rhythm Peripheral Pulses: 2+: carotid (R), carotid (L), femoral (R), femoral (L), dorsalis-pedis (R), dorsalis-pedis (L) Abdomen: normal bowel sounds, non-tender, soft Pelvic Exam: deferred Rectal: deferred Back: Normal inspection Skin: normal color, warm/dry Lymphatic: no adenopathy Extremities: normal range of motion, non-tender, normal inspection, normal capillary refill Neuro/Psych: no motor/sensory deficits, alert, normal mood/affect, oriented x 3 ICD10 Worksheet Patient Problems: Problems Problem Status Onset Facial laceration Acute Intracranial bleed Acute Orbital wall fracture Acute
--- NOTE | 2018-09-22 09:25 | NEUSURGPN ---
Assessment/Plan: Assessment: 77 yo female s/p fall without a LOC with SDH and tSAH Plan: -neuro improved this am-pt did have a seizure and will need a follow up with NS/ neurology when she is back home in [place] -on Keppra-continue with Keppra until seen by NS/Neurology in [place] in 2 weeks -PT/OT/ST on board -pt has other medical issues-IM following elevated Trop -Patient may go for cardiac cath tomorrow. Will obtain head CT tomorrow morning prior to ensure save to receive anti-plt therapies if needed from cardiac procedures -call with any questions or concerns -discussed with Dr. Kiryb Subjective: Denies any headache, nausea, dizziness, weakness Objective: NAD A&Ox3 CN II-XII grossly intact MAEx4 12/13 and equal - Physician Discussed Patient with : [facility] Physical Exam - Vitals, I&O, Labs I and O 09/21/18 09/22/18 09/23/18 05:59 05:59 05:59 Intake Total 2550 1350 Output Total 1000 Balance 1550 1350 Intake: Oral (ml) 1550 1350 IV Infused (ml) 1000 Ns 1,000 ml @ Wide Open 900 IV ONCE ONE Rx#: [id number] levETIRAcetam 1000MG/NACL 100 100 ml @ 400 mls/hr IV ONCE ONE Rx#:[id number] Output: Urine (ml) 1000 Bedside Commode 1000 Other: Intake Quantity Yes Yes Sufficient Number of Voids Bedside Commode 1 Toilet 2 Number of Stools Toilet 1 Vital Signs Temp Pulse Resp BP Pulse Ox 36.4 C 60 13 131/77 H 95 09/22/18 07:32 09/22/18 07:52 09/22/18 07:32 09/22/18 07:52 09/22/18 07:32 Laboratory Results 09/22/18 05:35 ICD10 Worksheet Patient Problems: Problems Problem Status Onset Facial laceration Acute Intracranial bleed Acute Orbital wall fracture Acute
--- NOTE | 2018-09-22 12:12 | TRAUMAPN ---
Trauma Progress Note Assessment/Plan: PAD#4 Assessment: Nothing further to add except that right eyebrow sutures should be removed tomorrow (after cath). Plan: Trauma surgery will sign off. Subjective: no complaints Objective: Vital Signs Temp Pulse Resp BP Pulse Ox 36.4 C 60 13 131/77 H 95 09/22/18 07:32 09/22/18 07:52 09/22/18 07:32 09/22/18 07:52 09/22/18 07:32 Laboratory Results 09/22/18 05:35 09/21/18 09/22/18 09/23/18 05:59 05:59 05:59 Intake Total 2550 1350 Output Total 1000 Balance 1550 1350 PT 13.8 SEC (12.0-15.0) 09/18/18 20:35 INR 1.04 (0.83-1.16) 09/18/18 20:35 Physical Exam - Physical Exam General Appearance: WD/WN, alert, no apparent distress EENT: other (right lateral eyebrow laceration looks good) Respiratory: lungs clear, normal breath sounds
--- NOTE | 2018-09-22 13:07 | PDINTPN ---
[facility] Investigator Progress Note Assessment/Plan: 77 yo F s/p mechanical fall complicated by subdural hematoma and SAH as well as seizure and NSTEM # mechanical fall # SDH and SAH. stable. no antiplatelets or anticoag until 09/23/18 per NS # seizure. first seizure. related to above # NSTEMI unclear if true myocardial clot vs stress cardiomyopathy # orbital fracture # hypothyroidism PLAN # coronary angiogram 09/23/18 # continue keppra # no antiplatelets or anticoag until 09/23/18 # monitor ECG # continue synthroid # DATA 09/20/18 TTE LVEF 45-50%, distal heart and apex hypokinesis LABS reviewed [facility] [place] 2.2 CT HEAD 09/20/18 stable L SDH, small SAH stable Subjective: Slept well, tolerating diet, work with PT, denies fevers chills nausea vomiting shortness of breath Objective: Vital Signs Temp Pulse Resp BP Pulse Ox 36.5 C 69 14 119/52 L 94 09/22/18 12:14 09/22/18 12:14 09/22/18 12:14 09/22/18 12:14 09/22/18 12:14 Laboratory Results 09/22/18 05:35 09/21/18 09/22/18 09/23/18 05:59 05:59 05:59 Intake Total 2550 1350 Output Total 1000 Balance 1550 1350 PT 13.8 SEC (12.0-15.0) 09/18/18 20:35 INR 1.04 (0.83-1.16) 09/18/18 20:35 Physical Exam - Physical Exam General Appearance: alert, no apparent distress EENT: PERRL/EOMI, normal ENT inspection Neck: non-tender, full range of motion, supple Respiratory: chest non-tender, lungs clear, normal breath sounds Cardiac/Chest: normal peripheral pulses, regular rate, rhythm, No edema Abdomen: normal bowel sounds, non-tender Back: Normal inspection Extremities: normal range of motion, non-tender, normal inspection Neuro/Psych: no motor/sensory deficits, alert, normal mood/affect, oriented x 3 ICD10 Worksheet Patient Problems: Problems Problem Status Onset Facial laceration Acute Intracranial bleed Acute Orbital wall fracture Acute
[2018-09-22] MEDS ORDERED: TEMAZEPAM 15 MG CAP PO PRN (14:11)
--- NOTE | 2018-09-22 15:48 | HOSPPROG ---
Hospitalist Progress Note Assessment/Plan: 77-year-old admitted with mechanical fall, sustaining a orbital fracture, subdural hematoma and subarachnoid hemorrhage. Overall she is improving although continues to complain of pain over her orbital fracture. Reviewed ENT no which recommends monitoring as no sign of entrapment at this time however she does need close and ongoing follow-up post discharge by ENT. Patient had grand mal seizure yesterday in the bathroom. This was associated with EKG changes in ST depression as well as elevated troponins. Her EKG then improved however she did have an episode of chest pain last night that responded to nitroglycerin. subdural hematoma and subarachnoid hemorrhage, followed by Neurosurgery. CT scan results today are stable gseizure. Patient and bathroom and noted her right hand was shaking uncontrollably before her seizure. She was able to call out and get help so she was not injured. EKG post seizure did show some significant ST depressions on the limb leads. * Currently on Keppra for seizure prophylaxis no further seizures noted * Repeat metabolic panel given mild acidosis post seizure reasonable to get EEG during this admit EKG changes associated with abnormal wall motion abnormalities on echocardiogram and elevated troponins. She had an episode of chest pain last night that responded to nitroglycerin and morphine. Discussed with Cardiology who feel this could represent coronary artery disease versus stress myopathy. * Continue close monitoring and telemetry, troponins are trending down * angiogram 2.13 * concern for RCA lesion orbital fracture, appreciate ENT consult who recommends close monitoring for the next week to look for entrapment. At this time there is no evidence of entrapment. She will need to establish care back in [place] when she returns home. hypertension on admission. I suspect this is likely due to pain and anxiety however that has resolved and she has been normotensive hypothyroidism on replacement Subjective: case d/w dr cullen Objective: Vital Signs Temp Pulse Resp BP Pulse Ox 37.3 C 72 19 143/61 H 95 09/22/18 15:18 09/22/18 15:18 09/22/18 15:18 09/22/18 15:18 09/22/18 15:18 Laboratory Results 09/22/18 05:35 09/21/18 09/22/18 09/23/18 05:59 05:59 05:59 Intake Total 2550 1350 500 Output Total 1000 Balance 1550 1350 500 PT 13.8 SEC (12.0-15.0) 09/18/18 20:35 INR 1.04 (0.83-1.16) 09/18/18 20:35 - Physical Exam Constitutional: no apparent distress, appears nourished Eyes: PERRL, anicteric sclera Ears, Nose, Mouth, Throat: moist mucous membranes, hearing normal Cardiovascular: regular rate and rhythym, no murmur, rub, or gallop Respiratory: no respiratory distress, no rales or rhonchi Gastrointestinal: normoactive bowel sounds, soft, non-tender abdomen Genitourinary: no bladder fullness, No beckman in urethra Skin: warm, normal color Musculoskeletal: full muscle strength, no muscle tenderness Neurologic: AAOx3 ICD10 Worksheet Patient Problems: Problems Problem Status Onset Facial laceration Acute Intracranial bleed Acute Orbital wall fracture Acute
--- NOTE | 2018-09-22 15:53 | CPEKG ---
Test Reason : OPEN Blood Pressure : / mmHG Vent. Rate : 065 BPM Atrial Rate : 065 BPM P-R Int : 192 ms QRS Dur : 090 ms QT Int : 428 ms P-R-T Axes : 072 033 090 degrees QTc Int : 445 ms Sinus rhythm Anterior infarct, age indeterminate Confirmed by Geo Abbott ([id number]) on 09/22/2018 3:52:39 PM Referred By: Jeanette Alaniz Confirmed By:Geo Abbott
[2018-09-23] MEDS: ACETAMINOPHEN 325 MG TAB PO PRN ×2 (05:17→21:36)
[2018-09-23] MEDS: LEVOTHYROXINE 50 MCG TAB PO SCH (05:17)
[2018-09-23] MEDS ORDERED: DIAZEPAM 5 MG TAB PO ONE (06:00)
[2018-09-23] MEDS ORDERED: FAMOTIDINE 20 MG TAB PO ONE (06:00)
[2018-09-23] MEDS ORDERED: diphenhydrAMINE 25 MG CAP PO ONE (06:00)
[2018-09-23 06:01] LABS: PLATELET COUNT 201 10^3/uL (150-400)
[2018-09-23 06:09] LABS: INR 1.1 (0.83-1.16); PROTIME(PATIENT) 14.4 SEC (12.0-15.0)
[2018-09-23] MEDS: ATORVASTATIN CALCIUM 40 MG TAB PO SCH (07:52)
[2018-09-23] MEDS: LOSARTAN POTASSIUM 50 MG TAB PO SCH ×2 (07:52→21:38)
[2018-09-23] MEDS: CARVEDILOL 6.25 MG TAB PO SCH ×2 (07:52→17:25)
[2018-09-23] MEDS: ASPIRIN 81 MG CHEWABLE TAB PO SCH (07:53)
[2018-09-23] MEDS: levETIRAcetam 500 MG TAB PO SCH ×2 (07:53→21:37)
--- NOTE | 2018-09-23 08:11 | NEUSURGPN ---
Assessment/Plan: Assessment: 77 yo female s/p fall without a LOC with SDH and tSAH Plan: -neuro improved this am-pt did have a seizure and will need a follow up with NS/ neurology when she is back home in [place] -on Keppra-continue with Keppra until seen by NS/Neurology in [place] in 2 weeks -PT/OT/ST on board -pt has other medical issues-IM following elevated Trop -Patient may go for cardiac cath today -Head CT looks stable but will need to check report prior to cath to ensure save to receive anti-plt therapies if needed from cardiac procedures -call with any questions or concerns -discussed with Dr. Kirby -pt understands and agrees Subjective: Awake and alert. NAD. Eating/drinking and voiding. No cisneros/neck/chest/abd or gu complaints. No f/c/n/v/d. Objective: AAO x 3, PERRLA/EOMI no droop CN 2-12 grossly intact +lt touch 5/5 BUE/BLE = Neuro Check Frequency: per routine Urinary Catheter in Place: No - Physician Discussed Patient with : [facility] Physical Exam - Vitals, I&O, Labs I and O 09/22/18 09/23/18 09/24/18 05:59 05:59 05:59 Intake Total 1350 2500 Balance 1350 2500 Intake: Oral (ml) 1350 2500 Other: Intake Quantity Yes Yes Sufficient Number of Voids Toilet 2 2 Number of Stools Toilet 1 Vital Signs Temp Pulse Resp BP Pulse Ox 36.7 C 63 16 129/58 H 92 09/23/18 07:29 09/23/18 07:52 09/23/18 07:29 09/23/18 07:52 09/23/18 07:29 Laboratory Results 09/23/18 05:37 09/23/18 05:37 ICD10 Worksheet Patient Problems: Problems Problem Status Onset Facial laceration Acute Intracranial bleed Acute Orbital wall fracture Acute
[2018-09-23] MEDS: SENNOSIDES/DOCUSATE SODIUM TAB PO SCH ×2 (09:54→21:38)
--- NOTE | 2018-09-23 10:58 | SOAPPROG ---
SOAP Progress Note Assessment/Plan: Assessment: 1. Mechanical fall. This has resulted in a left orbital fracture, subdural hematoma and evidence of a subarachnoid hemorrhage. 2. Non ST elevation myocardial infarction. She had symptoms of chest discomfort , ECG changes and elevated cardiac enzymes. This could be a reflection of underlying coronary disease or possibly a result of stress cardiomyopathy. 3. Labile hypertension. She presented with systolics well in excess of 200 mmHg. Yesterday she had blood pressures noted to be down into the 60s systolic. Today, blood pressures are reasonably well controlled inconsistent in the low 100s. It should be noted that her amlodipine has not been administered. 4. Seizure. Apparently, she suffered a seizure yesterday. She has not had a recurrent event since then. 09/22/2018: She is stable. No further chest discomfort. She is tolerating her current medications. 09/23/2018: She appears to be stable. She did have some slight dyspnea the other evening which is a little concerning in light of her cardiac history. In reviewing her ECG this has nearly normalized. She does continue to have Q- waves in lead V2 with biphasic T-waves in that lead. In looking at her head CT reported appears that her subdural hematoma is stable. Plan: 1. Provided that it is okay with Neurosurgery I think we should proceed with coronary angiography today. The risks, benefits and alternatives were discussed with the patient and she is in agreement with proceeding. 2. Further recommendations will be made pending the risk all to the above study. 09/23/18 10:57 Subjective: She is doing well. She has had no chest discomfort. Yesterday evening she did , however, experience mild dyspnea which has now resolved. She does have a lingering headache although this too appears to be improving. A head CT was done earlier today which, per the report, indicates that her subdural hematoma is likely stable. Objective: Vital Signs Temp Pulse Resp BP Pulse Ox 36.7 C 63 16 129/58 H 92 09/23/18 07:29 09/23/18 07:52 09/23/18 07:29 09/23/18 07:52 09/23/18 07:29 Laboratory Results 09/23/18 05:37 09/23/18 05:37 09/22/18 09/23/18 09/24/18 05:59 05:59 05:59 Intake Total 1350 2500 Balance 1350 2500 PT 14.4 SEC (12.0-15.0) 09/23/18 05:37 INR 1.10 (0.83-1.16) 09/23/18 05:37 Physical Exam - Physical Exam General Appearance: WD/WN, alert, no apparent distress Respiratory: chest non-tender, lungs clear, normal breath sounds Cardiac/Chest: normal peripheral pulses, regular rate, rhythm Peripheral Pulses: 2+: carotid (R), carotid (L), femoral (R), femoral (L), dorsalis-pedis (R), dorsalis-pedis (L) Abdomen: normal bowel sounds, non-tender, soft Pelvic Exam: deferred Rectal: deferred Back: Normal inspection Skin: normal color, warm/dry Lymphatic: no adenopathy Extremities: normal range of motion, non-tender, normal inspection, normal capillary refill Neuro/Psych: no motor/sensory deficits, alert, normal mood/affect, oriented x 3 ICD10 Worksheet Patient Problems: Problems Problem Status Onset Facial laceration Acute Intracranial bleed Acute Orbital wall fracture Acute
--- NOTE | 2018-09-23 11:47 | CPEKG ---
Test Reason : OPEN Blood Pressure : / mmHG Vent. Rate : 058 BPM Atrial Rate : 058 BPM P-R Int : 187 ms QRS Dur : 087 ms QT Int : 412 ms P-R-T Axes : 067 -04 045 degrees QTc Int : 405 ms Sinus rhythm Probable left atrial enlargement Minimal ST elevation, anterior leads Confirmed by Geo Abbott ([id number]) on 09/23/2018 11:46:41 AM Referred By: Jeanette Alaniz Confirmed By:Geo Abbott
--- NOTE | 2018-09-23 11:49 | CPEKG ---
Test Reason : tachycardia Blood Pressure : / mmHG Vent. Rate : 108 BPM Atrial Rate : 109 BPM P-R Int : 171 ms QRS Dur : 095 ms QT Int : 324 ms P-R-T Axes : 079 023 -37 degrees QTc Int : 435 ms Sinus tachycardia Probable left atrial enlargement Probable anteroseptal infarct, recent Confirmed by Geo Abbott ([id number]) on 09/23/2018 11:49:00 AM Referred By: Jeanette Alaniz Confirmed By:Geo Abbott
[2018-09-23] MEDS ORDERED: LIDOCAINE 1% 300 MG/30 ML SDV ONE (14:27)
[2018-09-23] MEDS ORDERED: fentaNYL 100 MCG/2 ML INJ ONE (14:27)
[2018-09-23] MEDS ORDERED: MIDAZOLAM 2 MG/2 ML VIAL ONE (14:28)
[2018-09-23] MEDS ORDERED: IOHEXOL 350mgI/ML (OMNIPAQUE) 150 ML BTL IV ONE (14:28)
--- NOTE | 2018-09-23 14:35 | PDHPUP ---
History & Physical Update H&P update statement: This history and physical update is based on an assessment of the patient which was completed after admission or registration (within 24 hours), but prior to the surgery/procedure. H&P update: H&P reviewed & patient examined, no change in patient's condition since H&P completed
--- NOTE | 2018-09-23 14:36 | PDPROPOC ---
Sedation Plan of Care Sedation Plan of Care: mental status noted, patient educated of risks, benefits , alternatives ASA Classification: ASA 2 Planned drugs: fentanyl, midazolam Mallampati Score: Class 2 Mallampati Reference Image: Patient passed 3-3-2 rule?: Yes
--- NOTE | 2018-09-23 15:57 | HOSPPROG ---
Hospitalist Progress Note Assessment/Plan: 77-year-old admitted with mechanical fall, sustaining a orbital fracture, subdural hematoma and subarachnoid hemorrhage. Overall she is improving although continues to complain of pain over her orbital fracture. Reviewed ENT no which recommends monitoring as no sign of entrapment at this time however she does need close and ongoing follow-up post discharge by ENT. Patient had grand mal seizure yesterday in the bathroom. This was associated with EKG changes in ST depression as well as elevated troponins. Her EKG then improved however she did have an episode of chest pain last night that responded to nitroglycerin. subdural hematoma and subarachnoid hemorrhage, followed by Neurosurgery. CT scan results today are stable seizure. Patient and bathroom and noted her right hand was shaking uncontrollably before her seizure. She was able to call out and get help so she was not injured. EKG post seizure did show some significant ST depressions on the limb leads. continue kepprA some aspects of story less c/w seizure, EREG in AM EKG changes associated with abnormal wall motion abnormalities on echocardiogram and elevated troponins. She had an episode of chest pain last night that responded to nitroglycerin and morphine. Discussed with Cardiology who feel this could represent coronary artery disease versus stress myopathy. * Continue close monitoring and telemetry, troponins are trending down * angiogram normal, per report orbital fracture, appreciate ENT consult who recommends close monitoring for the next week to look for entrapment. At this time there is no evidence of entrapment. She will need to establish care back in [place] when she returns home. hypertension on admission. I suspect this is likely due to pain and anxiety however that has resolved and she has been normotensive hypothyroidism on replacement Subjective: case d/w dr cullen. clean cath, per report Objective: Vital Signs Temp Pulse Resp BP Pulse Ox 36.8 C 62 16 131/55 H 93 09/23/18 11:47 09/23/18 11:47 09/23/18 11:47 09/23/18 11:47 09/23/18 11:47 Laboratory Results 09/23/18 05:37 09/23/18 05:37 09/22/18 09/23/18 09/24/18 05:59 05:59 05:59 Intake Total 1350 2500 400 Balance 1350 2500 400 PT 14.4 SEC (12.0-15.0) 09/23/18 05:37 INR 1.10 (0.83-1.16) 09/23/18 05:37 - Physical Exam Constitutional: appears nourished Eyes: PERRL, anicteric sclera Ears, Nose, Mouth, Throat: moist mucous membranes, hearing normal Cardiovascular: regular rate and rhythym, no murmur, rub, or gallop Respiratory: no respiratory distress, no rales or rhonchi Gastrointestinal: normoactive bowel sounds, soft, non-tender abdomen Genitourinary: no bladder fullness, No beckman in urethra Skin: warm, normal color Musculoskeletal: full muscle strength Neurologic: AAOx3 Psychiatric: interacting appropriately ICD10 Worksheet Patient Problems: Problems Problem Status Onset Facial laceration Acute Intracranial bleed Acute Orbital wall fracture Acute
--- NOTE | 2018-09-23 16:34 | PDINTPN ---
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 stable. no antiplatelets or anticoag until 09/23/18 per NS # seizure. first seizure. related to above # NSTEMI unclear if true myocardial clot vs stress cardiomyopathy # orbital fracture # hypothyroidism PLAN # coronary angiogram with possible PCI today by Dr. Peters # continue keppra # no antiplatelets or anticoag until 09/23/18 # monitor ECG # continue synthroid # OP follow up in [place] with ENT/optho for orbital fracture and to eval for development of entrapment. # PT/OT DATA 09/20/18 TTE LVEF 45-50%, distal heart and apex hypokinesis LABS reviewed [place] 2.2 CT HEAD 09/20/18 stable L SDH, small SAH stable 09/23/18 16:33 Subjective: Slept well throughout the night. No seizure activity. Denies pain, denies fevers, chills, nausea vomiting. The patient is excited to undergo her procedure with anticipation of leaving in the coming days. Objective: Vital Signs Temp Pulse Resp BP Pulse Ox 36.8 C 62 16 131/55 H 93 09/23/18 11:47 09/23/18 11:47 09/23/18 11:47 09/23/18 11:47 09/23/18 11:47 Laboratory Results 09/23/18 05:37 09/23/18 05:37 09/22/18 09/23/18 09/24/18 05:59 05:59 05:59 Intake Total 1350 2500 400 Balance 1350 2500 400 PT 14.4 SEC (12.0-15.0) 09/23/18 05:37 INR 1.10 (0.83-1.16) 09/23/18 05:37 Physical Exam - Physical Exam General Appearance: alert, no apparent distress EENT: PERRL/EOMI, normal ENT inspection, other (Right periorbital area sutures in place) Neck: non-tender, full range of motion Respiratory: chest non-tender, lungs clear Cardiac/Chest: normal peripheral pulses, regular rate, rhythm, No edema Abdomen: normal bowel sounds, non-tender Back: Normal inspection Skin: normal color, warm/dry Extremities: normal range of motion, non-tender Neuro/Psych: no motor/sensory deficits, alert, normal mood/affect, oriented x 3 ICD10 Worksheet Patient Problems: Problems Problem Status Onset Facial laceration Acute Intracranial bleed Acute Orbital wall fracture Acute
--- NOTE | 2018-09-24 02:12 | CPIP ---
[f rep st] INVASIVE CARDIAC PROCEDURE DATE OF PROCEDURE: 09/23/2018 INDICATION FOR PROCEDURE: Non-STEMI. PROCEDURE: 1. Nonselective right groin sheathogram. 2. Bilateral coronary angiography. 3. Left heart catheterization. 4. Left ventriculogram. HISTORY: Briefly, this is a 77-year-old female with history of recent subdural hematoma. The patien t was apparently being seen here [facility] where she had sudden onset of chest pain and what appeared to be nonspecific ST changes as well as elevated troponin. Given these findings, the patient consented for a left heart catheterization. DESCRIPTION OF PROCEDURE: After informed consent, the patient was brought to [facility] where the right barak in was prepped and draped in a sterile fashion. Using lidocaine, a short 6-Kazakh sheath right throu gh right common femoral artery verified via angiographically. Through this 6-Kazakh sheath a JL4 cat heter was advanced over the 0.035 wire to the left coronary artery. Images of the left coronary antwon ry revealed anterior and superior takeoff of the left main, which was widely patent. The left circum flex artery had 20% proximal with another area of 30% in its midportion, however, appeared to be wide ly patent distally. The LAD had mild plaque disease throughout its course, and there was a diagonal artery giving off the midbody, which was healthy and free of disease. After these images were obtain ed, the JL4 catheter was removed. The JR4 catheter was advanced to the right coronary artery. Image s of the right coronary artery revealed again wide ostial right coronary artery with no significant d isease. There was mild plaque disease in the range of 20% to 30% throughout the RCA. The distal RPD A appeared to be healthy and free of disease. After the images were obtained, the JR4 catheter was r emoved. A pigtail catheter was advanced into the left ventricle. EDP was approximately 15 mmHg. Le ft ventriculogram in the GOLDSTEIN projection showed an EF of approximately 60% with no wall motion abnorma lities. No pullback gradient between the LV and aorta. The pigtail catheter was removed over the 0. 035 wire. The right groin was closed with a 6-Kazakh Angio-Seal. The patient tolerated the procedur e well with no complications. IMPRESSION: 1. Mild noncritical coronary artery disease, namely in the form of 20% to 30% disease in the left ci rcumflex artery, left anterior descending artery and proximal right coronary artery. 2. Normal ejection fraction. PLAN: The patient will remain on medical therapy at this point. No need for PCI or surgery. /[id number]/MODL
[2018-09-24] MEDS: LEVOTHYROXINE 50 MCG TAB PO SCH (05:37)
[2018-09-24] MEDS: ACETAMINOPHEN 325 MG TAB PO PRN (07:56)
[2018-09-24] MEDS: CARVEDILOL 6.25 MG TAB PO SCH ×2 (07:57→18:29)
[2018-09-24] MEDS: levETIRAcetam 500 MG TAB PO SCH (07:58)
[2018-09-24] MEDS: ASPIRIN 81 MG CHEWABLE TAB PO SCH (07:58)
[2018-09-24] MEDS: ATORVASTATIN CALCIUM 40 MG TAB PO SCH (07:58)
[2018-09-24] MEDS: LOSARTAN POTASSIUM 50 MG TAB PO SCH ×2 (07:59→20:49)
[2018-09-24] MEDS: SENNOSIDES/DOCUSATE SODIUM TAB PO SCH ×2 (08:00→20:49)
--- NOTE | 2018-09-24 09:11 | NEUSURGPN ---
Assessment/Plan: Assessment: 77 yo female s/p fall without a LOC with SDH and tSAH Patient stable with no acute change this morning Plan: -neuro improved this am-pt did have a seizure and will need a follow up with NS/ neurology when she is back home in [place] -on Keppra-continue with Keppra until seen by NS/Neurology in [place] in 2 weeks -PT/OT/ST on board -call with any questions or concerns -discussed with Dr. Kirby -pt understands and agrees Subjective: Mild lightheadness, but denies any headaches, nausea, dizziness, weakness Objective: AAO x 3, PERRLA/EOMI no droop CN 2-12 grossly intact +lt touch 5/5 BUE/BLE - Physician Discussed Patient with : [facility] Physical Exam - Vitals, I&O, Labs I and O 09/23/18 09/24/18 09/25/18 05:59 05:59 05:59 Intake Total 2500 900 Balance 2500 900 Intake: Oral (ml) 2500 900 Other: Intake Quantity Yes Sufficient Number of Voids Bedside Commode 1 Toilet 2 2 Number of Stools Bedside Commode 0 Vital Signs Temp Pulse Resp BP Pulse Ox 36.8 C 62 16 136/58 H 97 09/24/18 07:31 09/24/18 07:57 09/24/18 07:31 09/24/18 07:59 09/24/18 07:31 Laboratory Results 09/23/18 05:37 09/23/18 05:37 ICD10 Worksheet Patient Problems: Problems Problem Status Onset Facial laceration Acute Intracranial bleed Acute Orbital wall fracture Acute
--- NOTE | 2018-09-24 11:40 | CPEEG ---
[f rep st] ELECTROENCEPHALOGRAM DATE OF STUDY: 09/23/2018 DATE OF INTERPRETATION: 09/24/2018 INTERPRETATION: This EEG contains a mild degree of focal slowing over the left temporoparietal head regions. These findings are consistent with the patient's known intracranial hemorrhage. There were no definite potentially epileptogenic abnormalities present during the awake or sleep recordings. No seizures were recorded during the study. REPORT: This EEG contains 10 Hz alpha activity to the posterior head regions. There was a mild degree of focal theta slowing present over the left temporoparietal head regions. There was no definite abnormal epileptiform activation at rest. There were occasional sharply contoured waveforms of uncertain clinical significance over the left frontotemporal head region embedded in sleep activity. There were no definite potentially epileptogenic abnormalities present during the drowsy or sleep recordings. No seizures were recorded during the study. /[id number]/MODL MTDD
--- NOTE | 2018-09-24 12:28 | ASMTCMCOM ---
CM Note CM Note Notes: Therapies are recommending home with no needs. Patient to discharge independently. CM available if needs change. Date Signed: 09/24/2018 12:27 PM Electronically Signed By:Nadia Bates LCSW
--- NOTE | 2018-09-24 14:39 | PDINTPN ---
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 stable. no antiplatelets or anticoag until 09/23/18 per NS # seizure. first seizure. related to above # NSTEMI. Coronary angiogram 09/23/2018 without significant obstructive coronary disease. Recovered EF. Suspect this was stress cardiomyopathy # orbital fracture # hypothyroidism PLAN # PT/OT # herbal sutures out # continue keppra # no antiplatelets or anticoag until 09/23/18 # continue synthroid # OP follow up in [place] with ENT/optho for orbital fracture and to eval for development of entrapment. # pulmonary critical care will sign DATA 09/20/18 TTE LVEF 45-50%, distal heart and apex hypokinesis 09/23/2018 coronary angiogram without obstructive coronary disease. Recovered EF. LABS reviewed [place] 2.2 CT HEAD 09/20/18 stable L SDH, small SAH stable 09/23/18 16:33 09/24/18 14:37 Subjective: Underwent cardiac catheterization yesterday. Nonobstructive coronary disease with normal EF. Patient feels well today, denies, fevers, chills, nausea, vomiting, worsening headaches, confusion, leg swelling Objective: Vital Signs Temp Pulse Resp BP Pulse Ox 36.8 C 57 L 15 115/54 L 98 09/24/18 07:31 09/24/18 12:00 09/24/18 12:00 09/24/18 12:00 09/24/18 12:00 Laboratory Results 09/23/18 05:37 09/23/18 05:37 09/23/18 09/24/18 09/25/18 05:59 05:59 05:59 Intake Total 2500 900 Balance 2500 900 PT 14.4 SEC (12.0-15.0) 09/23/18 05:37 INR 1.10 (0.83-1.16) 09/23/18 05:37 Physical Exam - Physical Exam General Appearance: alert, no apparent distress EENT: PERRL/EOMI, normal ENT inspection, other (Right orbital laceration has had interval removal of sutures. No bleeding) Neck: non-tender, full range of motion Respiratory: chest non-tender, lungs clear Cardiac/Chest: normal peripheral pulses, regular rate, rhythm, No edema Abdomen: normal bowel sounds, non-tender Skin: normal color, warm/dry Extremities: normal range of motion, non-tender Neuro/Psych: no motor/sensory deficits, alert, normal mood/affect, oriented x 3 ICD10 Worksheet Patient Problems: Problems Problem Status Onset Facial laceration Acute Intracranial bleed Acute Orbital wall fracture Acute
--- NOTE | 2018-09-24 15:56 | HOSPPROG ---
Hospitalist Progress Note Assessment/Plan: 77-year-old admitted with mechanical fall, sustaining a orbital fracture, subdural hematoma and subarachnoid hemorrhage. Overall she is improving although continues to complain of pain over her orbital fracture. Reviewed ENT no which recommends monitoring as no sign of entrapment at this time however she does need close and ongoing follow-up post discharge by ENT. Patient had grand mal seizure yesterday in the bathroom. This was associated with EKG changes in ST depression as well as elevated troponins. Her EKG then improved however she did have an episode of chest pain last night that responded to nitroglycerin. subdural hematoma and subarachnoid hemorrhage, followed by Neurosurgery. CT scan results stable seizure. Patient and bathroom and noted her right hand was shaking uncontrollably before her seizure. She was able to call out and get help so she was not injured. EKG post seizure did show some significant ST depressions on the limb leads. continue keppra eeg non diagnostic, continue keppra for 1-2 months head fogginess: i am concerned about keppra toxicity hold tonights dose decrease to 500 bid AM 09/25 EKG changes associated with abnormal wall motion abnormalities on echocardiogram and elevated troponins. She had an episode of chest pain last night that responded to nitroglycerin and morphine. Discussed with Cardiology who feel this could represent coronary artery disease versus stress myopathy. * Continue close monitoring and telemetry, troponins are trending down * angiogram normal, per report orbital fracture, appreciate ENT consult who recommends close monitoring for the next week to look for entrapment. At this time there is no evidence of entrapment. She will need to establish care back in [place] when she returns home. hypertension on admission. I suspect this is likely due to pain and anxiety however that has resolved and she has been normotensive hypothyroidism on replacement Subjective: case d/w dr frost. mauricio gomez non obstructive cad Objective: Vital Signs Temp Pulse Resp BP Pulse Ox 36.8 C 57 L 15 115/54 L 98 09/24/18 07:31 09/24/18 12:00 09/24/18 12:00 09/24/18 12:00 09/24/18 12:00 Laboratory Results 09/23/18 05:37 09/23/18 05:37 09/23/18 09/24/18 09/25/18 05:59 05:59 05:59 Intake Total 2500 900 Balance 2500 900 PT 14.4 SEC (12.0-15.0) 09/23/18 05:37 INR 1.10 (0.83-1.16) 09/23/18 05:37 - Physical Exam Constitutional: no apparent distress, appears nourished Eyes: PERRL, anicteric sclera, other (sutures out) Ears, Nose, Mouth, Throat: moist mucous membranes, hearing normal Cardiovascular: regular rate and rhythym, no murmur, rub, or gallop Respiratory: no respiratory distress, no rales or rhonchi Gastrointestinal: normoactive bowel sounds, soft, non-tender abdomen Genitourinary: no bladder fullness, No beckman in urethra Skin: warm, normal color Musculoskeletal: full muscle strength ICD10 Worksheet Patient Problems: Problems Problem Status Onset Facial laceration Acute Intracranial bleed Acute Orbital wall fracture Acute
[2018-09-25] MEDS: ACETAMINOPHEN 325 MG TAB PO PRN (05:04)
[2018-09-25] MEDS: LEVOTHYROXINE 50 MCG TAB PO SCH (05:05)
[2018-09-25 07:59] VITALS: BP 130/66
[2018-09-25] MEDS: CARVEDILOL 6.25 MG TAB PO SCH (08:26)
[2018-09-25] MEDS: LOSARTAN POTASSIUM 50 MG TAB PO SCH (08:30)
[2018-09-25] MEDS: SENNOSIDES/DOCUSATE SODIUM TAB PO SCH (08:32)
[2018-09-25] MEDS: ATORVASTATIN CALCIUM 40 MG TAB PO SCH (08:32)
--- NOTE | 2018-09-25 08:39 | NEUSURGPN ---
Assessment/Plan: Assessment: 77 yo female s/p fall without a LOC with SDH and tSAH Patient stable with no acute change this morning Plan: -neuro improved this am-pt did have a seizure and will need a follow up with NS/ neurology when she is back home in [place] [facility] held last night d/t side effects, Per nurse they may restart at a lower dose today. Defer to there team for management -PT/OT/ST -call with any questions or concerns -discussed with Dr. Kirby, will s/o off today. Patient will follow up with neurosurgeon in [place] -pt understands and agrees Subjective: Dizziness has resolved this morning. Denies any new headaches, nausea, dizziness Objective: NAD &Ox3 MAEx4 5/5 and equal in BUE and BLE. CN II-XII grossly intact, EOMI, PERRLA - Physician Discussed Patient with Dr.: Kirby Neurosurgery Physical Exam - Vitals, I&O, Labs I and O 09/24/18 09/25/18 09/26/18 05:59 05:59 05:59 Intake Total 900 1900 Output Total 4 Balance 900 1896 Intake: Oral (ml) 900 1900 IV Intake (ml) 0 Output: Urine (ml) 4 Bedside Commode 4 Other: Number of Voids Bedside Commode 1 3 Toilet 2 Number of Stools Bedside Commode 0 Vital Signs Temp Pulse Resp BP Pulse Ox 36.3 C 65 12 130/66 H 94 09/25/18 07:55 09/25/18 08:26 09/25/18 07:55 09/25/18 08:30 09/25/18 07:55 Laboratory Results 09/23/18 05:37 09/23/18 05:37 ICD10 Worksheet Patient Problems: Problems Problem Status Onset Facial laceration Acute Intracranial bleed Acute Orbital wall fracture Acute
[2018-09-25] MEDS ORDERED: levETIRAcetam 500 MG TAB PO SCH (09:00)
--- NOTE | 2018-09-25 10:41 | GDS ---
[f rep st] DISCHARGE SUMMARY DISCHARGE DIAGNOSES: 1. Fall. 2. Subarachnoid hemorrhage. 3. Subdural hematoma, frontoparietal junction. 4. [id number] coronary disease with non-ST elevation myocardial infarction. 5. Suspected seizure. 6. Hyponatremia. Please see admission history and physical by Dr. Breana Alaniz. The patient presented with a fall, without loss of consciousness. She had a subarachnoid hemorrhage and a subdural hematoma. She was followed by Neurosurgery without neurosurgical intervention. She w as actually due to be discharged a couple of days thereafter when she developed possible seizure-like activity. At that time, she also had some chest pain, and an EKG demonstrated T-wave inversions in the inferior leads. Troponins peaked at 3 and trended down thereafter. She had an echocardiogram sh owing a mid distal inferior wall apex, hypokinetic. She underwent an angiogram on the (when she was cleared for antiplatelet agents) showing noncritical coronary disease with 20% to 30% stenosis i n the left circumflex LAD and proximal right coronary artery. No intervention was made. She was sonam ntained on an aspirin. Cardiology started her on a statin and carvedilol. The patient's late hospital stay was complicated by some dizziness. Her Keppra dose was fairly high at a 1000 b.i.d. and it was held and then decreased to 500. She also was on 6.25 of carvedilol, with a relative bradycardia in the 50s and low 60s. 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 She did have an EEG which was nondiagnostic for seizures but did not rule them out either. In discus tere with Neurology, it was felt prudent to continue her on Keppra 500 b.i.d. She is discharged home with just that prescription. DISCHARGE STATUS: To home. /[id number]/MODL
--- NOTE | 2018-09-25 10:48 | HOSPPROG ---
Hospitalist Progress Note Assessment/Plan: 77-year-old admitted with mechanical fall, sustaining a orbital fracture, subdural hematoma and subarachnoid hemorrhage. Overall she is improving although continues to complain of pain over her orbital fracture. Reviewed ENT no which recommends monitoring as no sign of entrapment at this time however she does need close and ongoing follow-up post discharge by ENT. Patient had grand mal seizure yesterday in the bathroom. This was associated with EKG changes in ST depression as well as elevated troponins. Her EKG then improved however she did have an episode of chest pain last night that responded to nitroglycerin. subdural hematoma and subarachnoid hemorrhage, followed by Neurosurgery. CT scan results stable seizure. Patient and bathroom and noted her right hand was shaking uncontrollably before her seizure. She was able to call out and get help so she was not injured. EKG post seizure did show some significant ST depressions on the limb leads. continue keppra eeg non diagnostic, continue keppra for 1-2 months head fogginess: i am concerned about keppra toxicity hold tonights dose decrease to 500 bid AM 09/25 EKG changes associated with abnormal wall motion abnormalities on echocardiogram and elevated troponins. She had an episode of chest pain last night that responded to nitroglycerin and morphine. Discussed with Cardiology who feel this could represent coronary artery disease versus stress myopathy. * Continue close monitoring and telemetry, troponins are trending down * angiogram normal, per report orbital fracture, appreciate ENT consult who recommends close monitoring for the next week to look for entrapment. At this time there is no evidence of entrapment. She will need to establish care back in [place] when she returns home. hypertension on admission. I suspect this is likely due to pain and anxiety however that has resolved and she has been normotensive home today see dc summary > 30 minutes Subjective: less dizzy. ready for dc Objective: Vital Signs Temp Pulse Resp BP Pulse Ox 36.3 C 65 12 130/66 H 94 09/25/18 07:55 09/25/18 08:26 09/25/18 07:55 09/25/18 08:30 09/25/18 07:55 Laboratory Results 09/23/18 05:37 09/23/18 05:37 09/24/18 09/25/18 09/26/18 05:59 05:59 05:59 Intake Total 900 1900 Output Total 4 Balance 900 1896 PT 14.4 SEC (12.0-15.0) 09/23/18 05:37 INR 1.10 (0.83-1.16) 09/23/18 05:37 - Physical Exam Constitutional: no apparent distress, appears nourished Eyes: PERRL, anicteric sclera Ears, Nose, Mouth, Throat: moist mucous membranes, hearing normal Cardiovascular: regular rate and rhythym, no murmur, rub, or gallop Respiratory: no respiratory distress, no rales or rhonchi Gastrointestinal: normoactive bowel sounds Genitourinary: no bladder fullness, No beckman in urethra Skin: warm Musculoskeletal: full muscle strength ICD10 Worksheet Patient Problems: Problems Problem Status Onset Facial laceration Acute Intracranial bleed Acute Orbital wall fracture Acute
--- NOTE | 2018-09-25 11:17 | ASMTDCNOTE ---
Case Management Discharge Discharge Order Complete? Answers: Yes Patient to Obtain Answers: Independently Medications Transportation Arranged Answers: Family/Friends Family Notified Answers: Yes Discharge Comments Notes: Patient is discharging to her cousin's home [facility] and returning to [place] tomorrow. No further d/c needs. Date Signed: 09/25/2018 11:16 AM Electronically Signed By:Nadia Bates LCSW
--- NOTE | 2018-09-25 11:21 | ASDISCHSUM ---
Discharge Information Plan Status:Home with No Needs Medically Cleared to Leave:09/24/2018 Discharge Date:09/24/2018 CM D/C Disposition:Home, Routine, Self-Care ADT D/C Disposition:Home, Routine, Self-Care Projected Discharge Date:09/25/2018 12:00 AM Transportation at D/C:Family Discharge Delay Reason: Follow-Up Date:09/25/2018 12:00 AM Discharge Slot:1 - 8:01 am - 12:00 noon Final Diagnosis:Subdural hematoma, subarachnoid hemorrhage Placement Information Patient Contact Information Contact Name:VIOLETTA Relationship: Address:[address] [place] [address] Work Phone: City:[place] Alternate Phone: [facility]/Zip Code:[place] [address] Email: Financial Information Financial Class:Medicare Primary Plan Desc:MEDICARE INPATIENT Primary Plan Number:[id number] Secondary Plan Desc:[facility] Secondary Plan Number:[id number] Assessment Information LACE LACE Length of stay for Answers: 4-6 days current admission Acuity / Level of Answers: Yes Care: Did the patient have an inpatient admission? Comorbidities - select Answers: Other Notes: HTN all that apply # of Emergency department Answers: 1-2 visits in the last 6 months Score: 9 Date Signed: 09/25/2018 11:18 AM Electronically Signed By:Nadia Bates LCSW [facility] CM Progress Note CM Note CM Note Notes: 09/19/2018 Case Management Note Discussed pt during rounds this morning. Pt is visiting [place] to see her cousin Dianne Roberts [phone]. Pt lives independently in her own home with her Wicho [phone] in [place]. Her daughter lives within a mile of her home. PCP is Dr. Luis Eduardo Juarez in [place]. Pt plans to fly back to [place] on Friday. PT is recommending home. Case Management d/c poc: home with follow up as directed. Case Management available if needs change. Date Signed: 09/19/2018 02:03 PM Electronically Signed By:Anna Leslie RN [facility] CM Progress Note CM Note CM Note Notes: Pt's care discussed in rounds, pt is scheduled for cardiac cath on Friday. Pt had seizure yesterday. Pt will likely be discharged independently, CM available if needs arise. Plan: Independent Date Signed: 09/21/2018 11:34 AM Electronically Signed By:LETY Triana [facility] CM Progress Note CM Note CM Note Notes: Therapies are recommending home with no needs. Patient to discharge independently. CM available if needs change. Date Signed: 09/24/2018 12:27 PM Electronically Signed By:Nadia Bates LCSW Case Management Discharge Plan Note Case Management Discharge Discharge Order Complete? Answers: Yes Patient to Obtain Answers: Independently Medications Transportation Arranged Answers: Family/Friends Family Notified Answers: Yes Discharge Comments Notes: [facility] and returning to [place] tomorrow. No further d/c needs. Date Signed: 09/25/2018 11:16 AM Electronically Signed By:Nadia Bates LCSW Intervention Information Intervention Type:*Incorrect Registration Date of Service:09/19/2018 09:57 AM Patient Type:Inpatient Staff Member:Sari Benson Hours: Discipline: Severity: Comment: Intervention Type:*IM-Signed Date of Service:09/25/2018 10:48 AM Patient Type:Inpatient Staff Member:Felicita Blas Hours: Discipline: Severity: Comment:
== END 2018-09-25 12:32 | disposition home or self-care (01) | DRG 85 ==
LOC: INTOOBSV 20:58 → F2N 22:37 → OBSVTOIN 09-19 15:16
PROVIDERS: ADMIT Surgery; ATTEND Surgery
PROC: 0HQ1XZZ Repair Face Skin, External Approach (ICD-10-PCS; 2018-09-18)
PROC: B2151ZZ Fluoroscopy of Left Heart using Low Osmolar Contrast (ICD-10-PCS; principal; 2018-09-23)
PROC: 4A023N7 Measurement of Cardiac Sampling and Pressure, Left Heart, Percutaneous Approach (ICD-10-PCS; principal; 2018-09-23)
PROC: B2111ZZ Fluoroscopy of Multiple Coronary Arteries using Low Osmolar Contrast (ICD-10-PCS; principal; 2018-09-23)
DX: S06.6X0A Traumatic subarachnoid hemorrhage without loss of consciousness, initial encounter (principal); I21.4 Non-ST elevation (NSTEMI) myocardial infarction; E87.1 Hypo-osmolality and hyponatremia; S06.5X0A Traumatic subdural hemorrhage without loss of consciousness, initial encounter; S02.31XA Fracture of orbital floor, right side, initial encounter for closed fracture; S01.81XA Laceration without foreign body of other part of head, initial encounter; W01.0XXA Fall on same level from slipping, tripping and stumbling without subsequent striking against object, initial encounter; Y92.511 Restaurant or cafe as the place of occurrence of the external cause; I25.10 Atherosclerotic heart disease of native coronary artery without angina pectoris; G40.409 Other generalized epilepsy and epileptic syndromes, not intractable, without status epilepticus; I10 Essential (primary) hypertension; Z87.891 Personal history of nicotine dependence
CPT/HCPCS: 92507-GN; 92523-GN; 96374; 97116-GP; 97161-GP; 97165-GO; 97530-GP; C1760; G0378; J1170; J1644; J1953; J2250; J2270; J2405; J3010; Q9967